=== PATIENT | female | born 1940 | race Caucasian/White ===

== ENCOUNTER 2016-10-09 09:59 | Day surgery (SDC) | payer MEDICARE, OTHER ==
--- NOTE | 2016-10-07 14:31 | HP ---
HISTORY OF PRESENT ILLNESS: The patient is a 75 year-old, history of hemoccult positive on 2 or 3 samples. According to the patient no gross bloody stools or melena. No change in bowel movements. FAMILY HISTORY: Mother with colon cancer, with colon cancer. She had a colonoscopy with a polyp back in 2007, is in need for follow up colonoscopy. PAST MEDICAL HISTORY: Bladder repair, hysterectomy, breast biopsy in the past. Had ovary and tube surgery in the past. She has had hypertension. MEDICATIONS: She is on aspirin, diltiazem, magnesium oxide for some hypomagnesium, potassium chloride. FAMILY HISTORY: Uterine cancer. ALLERGIES: Morphine, tramadol. SOCIAL HISTORY: No smoking, no alcohol abuse. REVIEW OF SYSTEMS: 12 systems reviewed, pertinent for admission assessment, no chest pain or palpitations, Other systems negative or noncontributory as noted above, pertinent as per admission questionnaire. PHYSICAL EXAMINATION: GENERAL: No acute distress. HEENT: Sclerae nonicteric. NECK: No JVD. CHEST: Equal excursions, nonlabored breathing. CARDIOVASCULAR: Regular rhythm. ABDOMEN: Soft, no peritoneal signs. EXTREMITIES: No significant edema. NEURO: Alert, moving extremities symmetrically. No gross motor deficits noted. RECTAL: Deferred for time of endoscopy exam. IMPRESSION: Hemoccult positive, 2 or 3 samples, according to the patient. No gross bloody stools but she has had prior history of polyps and she has had a family history of colon cancer. She needs follow up colonoscopy. She was shown the risk sheet, explained the procedure in detail, not limited to bleeding, infection, small risk of bowel injury or perforation, possible open procedure. Small risk of missed or non diagnosis, or incomplete exam possibly requiring barium enema or other studies or procedures. General risk of anesthesia or sedation, risk of bowel prep, postoperative nausea or cramping but not limited to. She understands, agrees to plan of procedure. We will proceed with outpatient follow up colonoscopy.
[~2016-10-09 09:59] MED LIST: Lactated Ringers 1,000 ML IV ONE; Lactated Ringers 1,000 ML IV SCH
[2016-10-09] MEDS ORDERED: Ketamine HCl 50 MG/ML IV ONE (10:00)
[2016-10-09] MEDS ORDERED: DIPRIVAN 200 MG/20 ML IV ONE (10:00)
[2016-10-09 10:18] VITALS: O2SAT 96
--- NOTE | 2016-10-09 12:44 | OP ---
SURGERY DATE/TIME: 10/09/2016 1143 PREOPERATIVE DIAGNOSES: 1) Heme-occult positive stool. 2) Personal history of polyps. 3) Family history of colon cancer. POSTOPERATIVE DIAGNOSES: 1) Slightly limited prep right colon. 2) Diverticulosis. 3) Small internal and external hemorrhoids. 4) One small patchy area of inflammation versus prep irritation sigmoid colon. PROCEDURES: Colonoscopy to cecum with cold biopsy patchy area of inflammation versus prep irritation sigmoid colon. SURGEON: Dr. Amish Branham. ANESTHESIA: MAC. ESTIMATED BLOOD LOSS: Minimal. INDICATIONS: As noted above. Risks and benefits explained in detail but not limited to and consent obtained. DESCRIPTION OF PROCEDURE AND FINDINGS: The patient is taken to the endoscopy room. MAC anesthesia introduced. After official time out and no disagreement with planned procedure, digital rectal exam did not reveal any rectal masses. Video colonoscope inserted and passed up the tortuous sigmoid, descending, transverse colon, ascending colon. In the right colon there was some foamy, liquidy stool that did limit exam a little bit. With the aid of some Mylicon suction irrigating first, the scope was able to be passed to the cecum. Appendiceal orifice and ileocecal valve well visualized. Palpation right lower quadrant confirmed location. On withdrawal of the scope, there were no signs of any large polyps, masses or obstructing lesion. She did have some moderate diverticulosis in the left colon. There was one small patchy area of inflammation versus prep irritation in the sigmoid colon cold biopsied for further evaluation. Otherwise no signs of any large polyps, masses or obstructing lesions. Again, she did have small internal and external hemorrhoids. Although she had some irritated hemorrhoids, heme-occult positive versus some other upper GI source or other etiology is unclear. Either way there were no signs of any obvious significant source of bleeding at this time noted in the colon. Findings discussed with the family out in the waiting area. She was transferred to the recovery room in stable condition. We will see her back in the office next week.
[2016-10-09 13:44] VITALS: BP 147/69; PULSE 71
== END 2016-10-09 13:46 | disposition home or self-care (01) ==
LOC: SDC 09:59
PROVIDERS: ATTEND Surgery
PROC: 0DBN8ZX Excision of Sigmoid Colon, Via Natural or Artificial Opening Endoscopic, Diagnostic (ICD-10-PCS; principal; 2016-10-09)
DX: K57.90 Diverticulosis of intestine, part unspecified, without perforation or abscess without bleeding (principal); Z86.010 Personal history of colon polyps; K64.4 Residual hemorrhoidal skin tags; K64.8 Other hemorrhoids; K51.40 Inflammatory polyps of colon without complications; Z80.0 Family history of malignant neoplasm of digestive organs; Z79.899 Other long term (current) drug therapy
CPT/HCPCS: 00810; 36415; 99100; J2704

== ENCOUNTER 2017-04-08 09:30 | Emergency (ER) | payer MEDICARE, OTHER ==
[2017-04-08 09:43] VITALS: O2SAT 98
--- NOTE | 2017-04-08 10:11 | ERPHSYRPT ---
- History of Present Illness Time Seen by Provider: 04/08/17 09:54 Source: patient Exam Limitations: no limitations Patient Subjective Stated Complaint: patient states she slipped on ice this morning and injured her right wrist. Triage Nursing Assessment: pt pink, warm, dry. swelling noted to right wrist. radial pulse strong. Physician History: 76-year-old white female arrives with complaint of pain in deformity of her right wrist symptoms since just prior to arrival. Patient states she fell at 8:00 this morning on the ice she has no other complaints. She does have a deformity and swelling of her right wrist. Past medical history includes high blood pressure, diverticulosis, polyps. Also history of arthritis Past surgical history includes bladder repair hysterectomy breast biopsy and ovary and tube removed. Occurred: just prior to arrival Method of Injury: fell (slipped on the ice) Quality: constant Severity of Pain-Max: moderate Severity of Pain-Current: moderate Extremities Pain Location: wrist: right Modifying Factors: Improves With: nothing Associated Symptoms: other (right wrist pain and deformity), No back pain, No chills, No chest discomfort, No chest pain, No dyspnea, No fever, No jaw pain, No nausea, No neck pain, No sweating, No short of breath, No vomiting Allergies/Adverse Reactions: morphine Adverse Reaction (Severe, Verified 04/08/17 09:43) Nausea and Vomiting tramadol Adverse Reaction (Severe, Verified 04/08/17 09:43) Nausea and Vomiting Home Medications: Diltiazem HCl [Cartia Xt] 180 mg PO DAILY 09/26/16 [History] Magnesium Oxide 400 mg [Mag-Ox 400] 400 mg PO DAILY 09/26/16 [History] Potassium Chloride 10 Meq Tab* [Klor Con 10 MEQ] 10 meq PO DAILY 09/26/16 [ History] Aspirin 81 mg PO DAILY 04/08/17 [History] Hx Tetanus, Diphtheria Vaccination/Date Given: Yes (up to date) Hx Influenza Vaccination/Date Given: Yes Hx Pneumococcal Vaccination/Date Given: Yes Immunizations Up to Date: Yes - Review of Systems Constitutional: No Fever, No Chills Eyes: No Symptoms Ears, Nose, & Throat: No Symptoms Respiratory: No Cough, No Dyspnea Cardiac: No Chest Pain, No Edema, No Syncope Abdominal/Gastrointestinal: No Abdominal Pain, No Nausea, No Vomiting, No Diarrhea Genitourinary Symptoms: No Dysuria Musculoskeletal: Other (right wrist pain and deformity) Skin: No Rash Neurological: No Dizziness, No Focal Weakness, No Sensory Changes Psychological: No Symptoms Endocrine: No Symptoms All Other Systems: Reviewed and Negative - Past Medical History Pertinent Past Medical History: Yes Neurological History: No Pertinent History ENT History: No Pertinent History Cardiac History: Hypertension Respiratory History: No Pertinent History Endocrine Medical History: No Pertinent History Musculoskeletal History: Arthritis GI Medical History: No Pertinent History History: No Pertinent History Psycho-Social History: No Pertinent History Female Reproductive Disorders: No Pertinent History - Past Surgical History Past Surgical History: Yes Neuro Surgical History: No Pertinent History Cardiac: No Pertinent History Respiratory: No Pertinent History Gastrointestinal: No Pertinent History Genitourinary: No Pertinent History Musculoskeletal: No Pertinent History Female Surgical History: Hysterectomy - Social History Smoking Status: Never smoker Exposure to second hand smoke: Yes Drug Use: none Patient Lives Alone: No - Female History Hx Now: No - Nursing Vital Signs Nursing Vital Signs: Initial Vital Signs Temperature 97.7 F 04/08/17 09:38 Pulse Rate 69 04/08/17 09:38 Respiratory Rate 18 04/08/17 09:38 Blood Pressure 176/69 04/08/17 09:38 O2 Sat by Pulse Oximetry 98 04/08/17 09:38 Pain Scale Pain Intensity 7 - Physical Exam General Appearance: mild distress Eyes, Ears, Nose, Throat Exam: moist mucous membranes Neck Exam: non-tender, supple Cardiovascular/Respiratory Exam: chest non-tender, normal breath sounds, regular rate/rhythm, no respiratory distress Abdominal Exam: non-tender, No guarding Back Exam: normal inspection, No vertebral tenderness Shoulder Exam: normal inspection, non-tender, no evidence of injury, normal ROM Elbow/Forearm Exam: normal inspection, non-tender, no evidence of injury, normal ROM Wrist Exam: No normal inspection (right wrist deformity, pain with palpation, decreased range of motion right wrist secondary to pain, right radial, ulnar pulses intact 2 /4 good capillary refill all fingers sensation intact to all fingers.) Hand Exam: normal inspection, non-tender, no evidence of injury, normal ROM Neuro/Tendon Exam: normal sensation, normal motor functions Mental Status Exam: alert, oriented x 3, cooperative Skin Exam: normal color, warm, dry SpO2 Interpretation: normal (98%) SpO2: 98 Oxygen Delivery: Room Air - Course Nursing assessment & vital signs reviewed: Yes - Radiology Exams Right Wrist X-ray Interpretation: Interpreted by me (X-ray right wrist, impacted comminuted fracture right distal radius with dorsal angulation.) Ordered Tests: Active Orders 24 hr Category Date Time Status Cold Application STAT Care 04/08/17 09:46 Active IV Insertion STAT Care 04/08/17 10:26 Active Splint STAT Care 04/08/17 10:20 Active WRIST (MIN 3 VIEWS) Stat Exams 04/08/17 09:56 Taken Medication Summary Discontinued Medications Generic Name Dose Route Start Last Admin Trade Name Freq PRN Reason Stop Dose Admin Ketorolac Tromethamine 30 mg 04/08/17 10:20 Toradol 30 Mg Injection IM 04/08/17 10:21 STAT ONE - Progress Progress: improved Progress Note: 04/08/17 10:13 This is a 76-year-old white female who arrives with complaint of pain and deformity of her right wrist after falling on the ice at approximately 8 AM this morning. Patient has an impacted comminuted fracture of her right distal radius with dorsal angulation. Family are interested in going to [facility] if they need to proceed for orthopedic care. I've discussed the case with Dr. Miller at [facility]. She has excepted patient for transfer. Patient does state that she has allergy to morphine and tramadol this apparently makes her nauseous. Will either give patient Toradol IM or consider IV fentanyl with Zofran. 04/08/17 10:22 Patient's son wants to take patient to [facility]. Patient stable. OCL splint applied patient's right arm by the patient's nurse. 04/08/17 10:27 Consideration was given to Toradol IM however Will go ahead and place IV, give patient fentanyl 25 g IV and give patient Zofran 4 mg IV. Instead. - Departure Time of Disposition: 10:15 Departure Disposition: Transfer ([facility] Dr. Miller) Clinical Impression: Fracture of right distal radius Qualifiers: Encounter type: initial encounter Fracture type: closed Fracture morphology: unspecified fracture morphology Qualified Code(s): S52.501A - Unspecified fracture of the lower end of right radius, initial encounter for closed fracture Condition: Fair Critical Care Time: No Referrals: ALYCE GONZALEZ [Primary Care Provider] - Additional Instructions: Proceed to [facility] ER. Nothing by mouth.
[2017-04-08] MEDS ORDERED: TORAdol 30 mg Injection IM ONE (10:20)
[2017-04-08] MEDS ORDERED: Zofran 4 MG/2 ML VIAL IV ONE (10:26)
[2017-04-08] MEDS ORDERED: SUBLIMAZE 100 MCG/2 ML IV ONE (10:26)
[2017-04-08] MEDS ORDERED: Zofran 4 MG/2 ML VIAL ONE (10:34)
[2017-04-08] MEDS ORDERED: SUBLIMAZE 100 MCG/2 ML ONE (10:35)
[2017-04-08 10:45] VITALS: PULSE 67
[2017-04-08 10:53] VITALS: BP 152/75
--- NOTE | 2017-04-08 20:47 | XRAY ---
Indication: Pain following fall. Comparison: None 3 views of the right wrist demonstrates osteopenia, hand/wrist degenerative changes, and mild posterior angulated and impacted acute fracture involving the distal metadiaphysis of the radius with soft tissue swelling.
== END 2017-04-08 10:53 | disposition short-term general hospital (02) ==
LOC: ED 09:30
PROC: 2W38X1Z Immobilization of Right Upper Extremity using Splint (ICD-10-PCS; principal; 2017-04-08)
DX: S52.501A Unspecified fracture of the lower end of right radius, initial encounter for closed fracture (principal); W00.0XXA Fall on same level due to ice and snow, initial encounter; Y93.9 Activity, unspecified; Y92.9 Unspecified place or not applicable; I10 Essential (primary) hypertension; M19.90 Unspecified osteoarthritis, unspecified site; Z79.899 Other long term (current) drug therapy
CPT/HCPCS: 29105; 36000; 73110; 96374; 96375; 99285; J2405; J3010

== ENCOUNTER 2017-04-30 12:47 | Inpatient (IN) | payer MEDICARE, OTHER ==
--- NOTE | 2017-04-30 13:11 | ERPHSYRPT ---
- History of Present Illness Time Seen by Provider: 04/30/17 13:00 Source: patient, family (sister) Patient Subjective Stated Complaint: Pt states "I had pain in my back on the right side and today it is up on my right side. I do no know if I am pulling muscles due to the new cast or not." Triage Nursing Assessment: Pt alert and oriented X 3, skin pwd. Pt ambulates with an upright steady gait, able to speak in clear full sentences. no apparent respiratory distress. Physician History: CC: right side pain Hx: 76 y/o patient of Dr Gonzalez with cast on her right arm from a fall three weeks ago. It is healing well. She has noted right side pain radiating from her back to the front since yesterday. Took a pain pill this AM and had nausea which has now resolved. No fever, chills, cough, or known rib injury. Pain radiates to her RUQ. Normal urination. Timing/Duration: yesterday Severity: moderate Allergies/Adverse Reactions: morphine Adverse Reaction (Severe, Verified 04/08/17 09:43) Nausea and Vomiting tramadol Adverse Reaction (Severe, Verified 04/08/17 09:43) Nausea and Vomiting Sulfa (Sulfonamide Antibiotics) Adverse Reaction (Verified 04/30/17 13:06) sick Home Medications: Diltiazem HCl [Cartia Xt] 180 mg PO DAILY 09/26/16 [History] Magnesium Oxide 400 mg [Mag-Ox 400] 400 mg PO DAILY 09/26/16 [History] Potassium Chloride 10 Meq Tab* [Klor Con 10 MEQ] 10 meq PO DAILY 09/26/16 [ History] Aspirin 81 mg PO DAILY 04/08/17 [History] Hx Tetanus, Diphtheria Vaccination/Date Given: Yes Hx Influenza Vaccination/Date Given: Yes Hx Pneumococcal Vaccination/Date Given: No Immunizations Up to Date: Yes - Review of Systems Constitutional: No Fever, No Chills Eyes: No Symptoms Ears, Nose, & Throat: No Symptoms Respiratory: No Cough, No Dyspnea Cardiac: Chest Pain (right side) Abdominal/Gastrointestinal: Abdominal Pain (right side), Nausea (this AM) Genitourinary Symptoms: No Dysuria Skin: No Rash Neurological: No Headache All Other Systems: Reviewed and Negative - Past Medical History Pertinent Past Medical History: Yes Neurological History: No Pertinent History ENT History: No Pertinent History Cardiac History: Hypertension Respiratory History: No Pertinent History Endocrine Medical History: No Pertinent History Musculoskeletal History: Arthritis GI Medical History: No Pertinent History History: No Pertinent History Psycho-Social History: No Pertinent History Female Reproductive Disorders: No Pertinent History - Past Surgical History Past Surgical History: Yes Neuro Surgical History: No Pertinent History Cardiac: No Pertinent History Respiratory: No Pertinent History Gastrointestinal: No Pertinent History Genitourinary: No Pertinent History Musculoskeletal: No Pertinent History Female Surgical History: Hysterectomy Other Surgical History: rt hand - Social History Smoking Status: Never smoker Exposure to second hand smoke: No Drug Use: none Patient Lives Alone: No - Female History Hx Last Menstrual Period: hysterecomty - Nursing Vital Signs Nursing Vital Signs: Initial Vital Signs Temperature 97.7 F 04/30/17 13:01 Pulse Rate 90 04/30/17 13:01 Respiratory Rate 20 04/30/17 13:01 Blood Pressure 144/100 04/30/17 13:01 O2 Sat by Pulse Oximetry 98 04/30/17 13:01 Pain Scale Pain Intensity 0 - Physical Exam General Appearance: alert Eye Exam: PERRL/EOMI Ears, Nose, Throat Exam: normal ENT inspection, moist mucous membranes Neck Exam: normal inspection, non-tender, supple Respiratory Exam: normal breath sounds Cardiovascular Exam: regular rate/rhythm Gastrointestinal/Abdomen Exam: soft, No tenderness, No distention, No mass, No guarding Back Exam: normal inspection, normal range of motion, No CVA tenderness Extremity Exam: normal inspection (right arm cast, hand pink and well perfused) Neurologic Exam: alert, oriented x 3, cooperative, sensation nml, No motor deficits Skin Exam: warm, dry, No rash SpO2 Interpretation: normal SpO2: 98 Oxygen Delivery: Room Air - Course Nursing assessment & vital signs reviewed: Yes EKG Interpreted by Me: RATE (126), A-fib, NORMAL AXIS, LAFB, NORMAL INTERVALS ( QTc 461), Non-specific ST Changes - Radiology Exams cxr X-ray Interpretation: Teleradiologist Report (stable copd, rll I/A) - Radiology Ultrasound Exam GB Ultrasound: discussed w/radiologist (negative, no right kidney hydronephrosis) Ordered Tests: Active Orders 24 hr Category Date Time Status Cath for Specimen-Straight STAT Care 04/30/17 13:06 Active EKG-ER Only STAT Care 04/30/17 13:06 Active IV Insertion STAT Care 04/30/17 13:06 Active CHEST 2 VIEWS (PA AND LAT) Stat Exams 04/30/17 13:06 Completed CHEST WITH CONTRAST [CT] Stat Exams 04/30/17 14:50 Completed GALLBLADDER [US] Stat Exams 04/30/17 13:06 Completed CBC W DIFF Stat Lab 04/30/17 13:30 Completed CMP Stat Lab 04/30/17 13:30 Completed D-DIMER QUANTITATION Stat Lab 04/30/17 14:21 Completed LIPASE Stat Lab 04/30/17 13:30 Completed MAGNESIUM Stat Lab 04/30/17 14:22 Completed PROTIME WITH INR Stat Lab 04/30/17 14:21 Completed PTT Stat Lab 04/30/17 14:21 Completed TROPONIN Q3H Lab 04/30/17 13:30 Completed TROPONIN Q3H Lab 04/30/17 17:30 Ordered TROPONIN Q3H Lab 04/30/17 20:30 Ordered TROPONIN Q3H Lab 04/30/17 23:30 Ordered TROPONIN Q3H Lab 05/01/17 02:30 Ordered UA W/RFX UR CULTURE Stat Lab 04/30/17 13:10 Completed Medication Summary Generic Name Dose Route Start Last Admin Trade Name Freq PRN Reason Stop Dose Admin Diltiazem HCl 100 mls @ 5 mls/hr 04/30/17 14:22 04/30/17 14:40 Cardizem Drip 100 Mg/100 Ml D5w IV 05/30/17 14:21 5 mg/hr .Q20H PRN 5 mls/hr HEART RATE/ A-FIB Administration Protocol 5 MG/HR Discontinued Medications Generic Name Dose Route Start Last Admin Trade Name Freq PRN Reason Stop Dose Admin Diltiazem HCl 5 mg 04/30/17 14:22 04/30/17 14:41 Cardizem Iv 50 Mg/10 Ml IV 04/30/17 14:23 5 mg STAT ONE Administration Diltiazem HCl Confirm 04/30/17 14:25 Cardizem Iv 50 Mg/10 Ml Administered 04/30/17 14:26 Dose 50 mg IV .STK-MED ONE Ondansetron HCl 4 mg 04/30/17 13:12 04/30/17 13:50 Zofran 4 Mg/2 Ml Vial IV 04/30/17 13:13 4 mg STAT ONE Administration Ondansetron HCl Confirm 04/30/17 13:17 Zofran 4 Mg/2 Ml Vial Administered 04/30/17 13:18 Dose 4 mg .ROUTE .STK-MED ONE Lab/Rad Data: Laboratory Result Diagrams 04/30/17 13:30 04/30/17 13:30 Laboratory Results 04/30/17 04/30/17 04/30/17 Range/Units 14:22 14:21 13:30 WBC (4.0-10.5) K/mm3 RBC (4.1-5.4) M/mm3 Hgb (12.0-16.0) gm/dl Hct (35-47) % MCV (78-100) fl MCH (26-32) pg MCHC (32-36) g/dl RDW (11.5-14.0) % Plt Count (150-450) K/mm3 MPV (6-9.5) fl Gran % (36.0-66.0) % Lymphocytes % (24.0-44.0) % Monocytes % (0.0-12.0) % Eosinophils % (0.00-5.0) % Basophils % (0.0-0.4) % Basophils # (0-0.4) INR 1.17 (0.8-3.0) APTT 25.3 (25.3-37.0) SECONDS D-Dimer 2016.48 H* (0-500) ng/mL Sodium (137-145) mmol/L Potassium (3.5-5.1) mmol/L Chloride (98-107) mEq/L Carbon Dioxide (22-30) mmol/L Anion Gap MEQ/L BUN (7-17) mg/dL Creatinine (0.52-1.04) mg/dl Estimated GFR ML/MIN Glucose (74-106) mg/dL Calcium (8.4-10.2) mg/dL Magnesium 2.1 (1.6-2.3) mg/dL Total Bilirubin (0.2-1.3) mg/dL AST (14-36) U/L ALT (0-35) U/L Alkaline Phosphatase (38-126) U/L Troponin I < 0.012 (0.000-0.034) ng/mL Serum Total Protein (6.3-8.2) mg/dL Albumin (3.5-5.0) g/dL Lipase (23-300) U/L Ur Collection Type Urine Color (YELLOW) Urine Appearance (CLEAR) Urine pH (5-6) Ur Specific Walker (1.005-1.025) Urine Protein (Negative) Urine Ketones (NEGATIVE) Urine Blood (0-5) Francis/ul Urine Nitrite (NEGATIVE) Urine Bilirubin (NEGATIVE) Urine Urobilinogen (0-1) mg/dL Ur Leukocyte Esterase (NEGATIVE) Urine Culture Reflexed (NO) Urine Glucose (NEGATIVE) mg/dL Specimen Received 04/30/17 04/30/17 04/30/17 Range/Units 13:30 13:30 13:10 WBC 10.9 H (4.0-10.5) K/mm3 RBC 3.97 L (4.1-5.4) M/mm3 Hgb 13.0 (12.0-16.0) gm/dl Hct 38.8 (35-47) % MCV 97.7 (78-100) fl MCH 32.7 H (26-32) pg MCHC 33.5 (32-36) g/dl RDW 13.6 (11.5-14.0) % Plt Count 327 (150-450) K/mm3 MPV 9.9 H (6-9.5) fl Gran % 80.6 H (36.0-66.0) % Lymphocytes % 9.7 L (24.0-44.0) % Monocytes % 9.4 (0.0-12.0) % Eosinophils % 0.2 (0.00-5.0) % Basophils % 0.1 (0.0-0.4) % Basophils # 0.01 (0-0.4) INR (0.8-3.0) APTT (25.3-37.0) SECONDS D-Dimer (0-500) ng/mL Sodium 137 (137-145) mmol/L Potassium 4.0 (3.5-5.1) mmol/L Chloride 105 (98-107) mEq/L Carbon Dioxide 22 (22-30) mmol/L Anion Gap 13.7 MEQ/L BUN 12 (7-17) mg/dL Creatinine 0.70 (0.52-1.04) mg/dl Estimated GFR > 60 ML/MIN Glucose 142 H (74-106) mg/dL Calcium 9.2 (8.4-10.2) mg/dL Magnesium (1.6-2.3) mg/dL Total Bilirubin 0.90 (0.2-1.3) mg/dL AST 17 (14-36) U/L ALT 16 (0-35) U/L Alkaline Phosphatase 89 (38-126) U/L Troponin I (0.000-0.034) ng/mL Serum Total Protein 6.8 (6.3-8.2) mg/dL Albumin 3.8 (3.5-5.0) g/dL Lipase 72 (23-300) U/L Ur Collection Type CLEAN CATCH Urine Color YELLOW (YELLOW) Urine Appearance CLEAR (CLEAR) Urine pH 5.0 (5-6) Ur Specific Walker 1.025 (1.005-1.025) Urine Protein NEGATIVE (Negative) Urine Ketones NEGATIVE (NEGATIVE) Urine Blood NEGATIVE (0-5) Francis/ul Urine Nitrite NEGATIVE (NEGATIVE) Urine Bilirubin NEGATIVE (NEGATIVE) Urine Urobilinogen NORMAL (0-1) mg/dL Ur Leukocyte Esterase NEGATIVE (NEGATIVE) Urine Culture Reflexed NO (NO) Urine Glucose NEGATIVE (NEGATIVE) mg/dL Specimen Received 04/30/17 1340 - Progress Progress Note: 04/30/17 14:23 No hx of afib in the past. She did not take her cardizem this AM as she was going to the doctor. No anticoagulants. Will check d-dimer, start cardizem for afib RVR. 04/30/17 16:28 CTA shows bilateral nonoccluding pulmonary emboli. Pt and family aware. She is on cardizem gtt for afib. Called Dr Gonzalez and will admit to ICU, echo, lovenox, and cardizem gtt. Counseled pt/family regarding: diagnosis, need for follow-up - Departure Time of Disposition: 16:30 Departure Disposition: In-patient Admission (ICU) Clinical Impression: Pulmonary emboli, Atrial fibrillation with RVR Condition: Serious Critical Care Time: Yes Critical Care Time(excluding separately billable procedures): 30-74 minutes Referrals: ALYCE GONZALEZ [Primary Care Provider] -
[2017-04-30] MEDS ORDERED: Zofran 4 MG/2 ML VIAL IV ONE (13:12)
[2017-04-30] MEDS ORDERED: Zofran 4 MG/2 ML VIAL ONE (13:17)
[2017-04-30 13:44] LABS: Appearance CLEAR (CLEAR); Bilirubin NEGATIVE (NEGATIVE); Blood NEGATIVE Ery/ul (0-5); Glucose NEGATIVE (NEGATIVE); Ketones NEGATIVE (NEGATIVE); Leukocyte Esterase NEGATIVE (NEGATIVE); Nitrite NEGATIVE (NEGATIVE); Protein,Urine Dip NEGATIVE (Negative); Specific Gravity 1.025 (1.005-1.025); Urobilinogen NORMAL mg/dL (0-1)
--- NOTE | 2017-04-30 14:02 | XRAY ---
Indication: Right upper quadrant pain. Vomiting. Comparison: June 27, 2012. PA/lateral chest again hyperinflated with new subtle right lower lobe infiltrate versus atelectasis. Left lung clear. Heart is not enlarged. Bony thorax intact with stable mild osteopenia, degenerative changes, and dextroscoliosis. Impression: 1. Right lower lobe infiltrate/atelectasis. Correlate clinically. 2. Stable COPD.
--- NOTE | 2017-04-30 14:05 | XRAY ---
Indication: Right upper quadrant pain. Two-dimensional right upper quadrant abdominal sonogram performed. Comparison: None Visualized portions of the gallbladder, liver, pancreas, and right kidney appear sonographically normal. Common bile duct measures 5.2 mm. Right kidney measures 9.6 cm in length. No ascites. Impression: Negative gallbladder sonogram.
[2017-04-30] MEDS ORDERED: CARDIZEM DRIP 100 MG/100 ML D5W 100 ML IV PRN (14:22)
[2017-04-30] MEDS ORDERED: Cardizem IV 50 MG/10 ML IV ONE ×2 (14:22→14:25)
[2017-04-30 14:26] LABS: ALBUMIN 3.8 g/dL (3.5-5.0); ALKALINE PHOSPHATASE 89 U/L (38-126); BLOOD UREA NITROGEN 12 mg/dL (7-17); CHLORIDE 105 mEq/L (98-107); Calcium 9.2 mg/dL (8.4-10.2); Carbon Dioxide 22 mmol/L (22-30); Glucose 142 mg/dL (74-106); LIPASE 72 U/L (23-300); SGOT/AST 17 U/L (14-36); SGPT/ALT 16 U/L (0-35); SODIUM 137 mmol/L (137-145); Total Protein 6.8 mg/dL (6.3-8.2)
[2017-04-30] MEDS ORDERED: CARDIZEM DRIP 100 MG/100 ML D5W 100 ML IV ONE (14:26)
[2017-04-30 14:30] LABS: INR 1.17 (0.8-3.0)
[2017-04-30 14:33] LABS: PTT 25.3 SECONDS (25.3-37.0)
[2017-04-30 14:47] LABS: ANION GAP 13.7 MEQ/L
[2017-04-30 14:54] LABS: BASOPHIL % 0.1 % (0.0-0.4); Basophil (Absolute #) 0.01 (0-0.4); Eosinophil % 0.2 % (0.00-5.0); Eosinophil (Absolute #) 0.02 (0-0.5); Granulocyte Absolute (ANC) 8.81 (1.4-6.9); Granulocytes % 80.6 % (36.0-66.0); Hematocrit 38.8 % (35-47); Lymphocyte (Absolute #) 1.06 (1.0-4.6); Lymphocytes % 9.7 % (24.0-44.0); Mean Cell Volume 97.7 fl (78-100); Mean Corpuscular Hemoglobin 32.7 pg (26-32); Mean Corpuscular Hgb Concent. 33.5 g/dl (32-36); Mean Platelet Volume 9.9 fl (6-9.5); Monocyte (Absolute #) 1.03 (0.0-1.3); Monocytes % 9.4 % (0.0-12.0); Platelet Count 327 K/mm3 (150-450); Red Blood Count 3.97 M/mm3 (4.1-5.4); Red Cell Distribution Width 13.6 % (11.5-14.0); White Blood Count 10.9 K/mm3 (4.0-10.5)
--- NOTE | 2017-04-30 16:15 | XRAY ---
Indication: Right-sided chest pain, short of breath, and wheezing. Elevated d-dimer. Multiple contiguous axial images obtained through the chest using 80 cc Isovue 370 contrast and PE protocol. Comparison: None There is satisfactory opacification of the pulmonary arteries including lobar and segmental branches. Non-occluding pulmonary emboli seen in the main right lower lobe and segmental branches. Additional lesser degree nonoccluding pulmonary emboli in all lobar branches bilaterally. Heart is not enlarged. Aorta is normal in course and caliber. No pathologic mediastinal/hilar lymphadenopathy. Small hiatal hernia. Subcentimeter right thyroid cyst/nodule. Examination of the lung parenchyma demonstrates mild bilateral dependent atelectasis and bibasilar fibrosis/scarring. Patchy right lower lobe airspace opacities with small effusion. Bony thorax intact with minimal degenerative changes throughout the spine. Limited upper abdomen demonstrates fatty liver. Impression: 1. Diffuse bilateral nonoccluding pulmonary emboli in all lobar branches, greatest right lower lobe. No distal infarct. 2. Right lower lobe patchy airspace disease with small effusion. 3. Small hiatal hernia. 4. Subcentimeter right thyroid cyst/nodule and fatty liver. CTDI 26.19
[2017-04-30] MEDS ORDERED: ENOXAPARIN SODIUM SQ SCH (16:30)
[2017-04-30] MEDS ORDERED: ENOXAPARIN SODIUM SQ ONE (16:46)
[2017-04-30] MEDS ORDERED: TYLENOL 325 MG PO PRN (17:24)
[2017-04-30] MEDS ORDERED: Lopressor 50 MG PO SCH (18:00)
[2017-04-30] MEDS ORDERED: ECOTRIN 81 MG PO SCH (18:30)
[2017-04-30] MEDS: Klor Con 10 MEQ PO SCH (18:52)
[2017-04-30] MEDS: MAG-OX 400 PO SCH (18:52)
[2017-04-30] MEDS: Coumadin 5 MG PO SCH (18:53)
[2017-04-30] MEDS: Pepcid 20 MG VIAL IV SCH (21:53)
[2017-05-01 04:52] LABS: BASOPHIL % 0.2 % (0.0-0.4); Basophil (Absolute #) 0.02 (0-0.4); Eosinophil % 0.8 % (0.00-5.0); Eosinophil (Absolute #) 0.08 (0-0.5); Granulocyte Absolute (ANC) 6.99 (1.4-6.9); Granulocytes % 71.4 % (36.0-66.0); Hematocrit 36.5 % (35-47); Lymphocyte (Absolute #) 1.66 (1.0-4.6); Mean Cell Volume 97.9 fl (78-100); Mean Corpuscular Hgb Concent. 32.9 g/dl (32-36); Mean Platelet Volume 9.5 fl (6-9.5); Monocyte (Absolute #) 1.04 (0.0-1.3); Monocytes % 10.6 % (0.0-12.0); Platelet Count 303 K/mm3 (150-450); Red Blood Count 3.73 M/mm3 (4.1-5.4); Red Cell Distribution Width 13.6 % (11.5-14.0); White Blood Count 9.8 K/mm3 (4.0-10.5)
[2017-05-01 04:55] LABS: Mean Corpuscular Hemoglobin 32.1 pg (26-32)
[2017-05-01 05:10] LABS: ANION GAP 12.8 MEQ/L; BLOOD UREA NITROGEN 8 mg/dl (7-17); CHLORIDE 102 mEq/L (98-107); Calcium 8.7 mg/dl (8.4-10.2); Carbon Dioxide 26 mmol/L (22-30); Creatinine 1 0.65 mg/dl (0.52-1.04); Glucose 100 mg/dL (74-106); Potassium 4.3 mmol/L (3.5-5.1); SODIUM 136 mmol/L (137-145)
[2017-05-01 05:35] LABS: INR 1.2 (0.8-3.0)
[2017-05-01 05:40] LABS: TSH, 3RD Generation 0.822 mIU/L (0.47-4.68)
[2017-05-01] MEDS ORDERED: Lopressor 50 MG ONE (05:55)
--- NOTE | 2017-05-01 07:51 | HP ---
HISTORY OF PRESENT ILLNESS: This is a 76 year-old lady who presented to the emergency department today. She reports that yesterday she started having right upper quadrant and back pain. She saw her orthopedic surgeon today and had a new cast placed on her right arm for a fracture. She felt this morning like she had been short of breath and was wheezing. We received a call from her home health nurse describing her symptoms and asked her to go to the emergency department. In the emergency department she was eventually discovered to have multiple small pulmonary emboli throughout both lungs as well as atrial fibrillation with rapid ventricular response. She reports that she just feels tired and wiped out. She reports that a week ago Sunday her left calf felt sore. She reports she has been as mobile as she is right handed and has not been able to do much with her arm in a cast. She also felt like it took a lot of effort to do anything with the cast and sometimes she would just feel very warm. She has a cast on her arm because she slipped on ice fell and broke her arm. REVIEW OF SYSTEMS: She denies any cough. No fever. Otherwise review of systems as noted in the history of present illness. PAST MEDICAL HISTORY: Hypertension, osteopenia. PAST SURGICAL HISTORY: Appendectomy, colonoscopy in 2007 with one polyp, bilateral ovaries removed 1990, breast biopsy that was benign in 1987, hysterectomy 1985 for noncancerous reason, bladder repair. MEDICATIONS: Aspirin 81 mg p.o. daily, diltiazem 180 mg p.o. daily which she reports she did not take this morning, potassium chloride 10 mEq p.o. daily, magnesium oxide 400 mg daily. ALLERGIES: MORPHINE, TRAMADOL, SULFA. SOCIAL HISTORY: She denies any tobacco or alcohol use. Her son, Julio C, lives with her. FAMILY HISTORY: Her father was killed in a war. Her mother had uterine cancer and colon cancer. PHYSICAL EXAMINATION: VITAL SIGNS: Temperature current 98.4F, temperature max 97.7F, heart rate 90 to 136, respiratory rate 18 to 22, blood pressure 114 to 144 over 70 to 102, weight 88.8 kg. Oxygen saturation 95 to 98% on room air. GENERAL: The patient is lying in bed a pleasant talkative lady in no acute distress. There is a family member at the bedside. CVS: Heart rate is irregularly irregular and tachycardic. CHEST: Lungs are clear to auscultation bilaterally. No crackles or wheezes. ABDOMEN: Soft, nontender, nondistended with normal bowel sounds. EXTREMITIES: No clubbing, cyanosis or edema. SKIN: Warm, dry and intact. LABORATORY DATA AND TESTS: Her D-dimer was significantly elevated at 2,016. White blood cell count 10.9, glucose 142. She has had two negative troponins. UA was negative. CT scan of her chest was read as diffuse bilateral nonoccluding pulmonary emboli in all lobar branches greater right lower lobe. No distal infarct. Right lower lobe patchy airspace disease with small effusion. Small hiatal hernia. Subcentimeter right bilobe cyst/nodule and fatty liver. Please see the radiologist report for full dictation. Gallbladder ultrasound in the emergency room was read as negative. Chest x-ray was read as right lower lobe infiltrate/atelectasis and stable chronic obstructive pulmonary disease. Clinically the patient has never had chronic obstructive pulmonary disease. ASSESSMENT AND PLAN: 1) ATRIAL FIBRILLATION WITH RAPID VENTRICULAR RESPONSE: She was given diltiazem loading dose in the emergency room followed by a drip. She was continued on this when admitted to the ICU. The pharmacist then reports there is not much diltiazem left. I discussed her case with Dr. Vladerrama who is the patient's chosen ultrasonic tester although she has never been seen by the ultrasonic tester yet. He recommends starting her on metoprolol tartrate 50 mg p.o. b.i.d. and titrating the diltiazem drip off. We will consider using digoxin if we need to for continued heart rate. She has also been started on Lovenox and Coumadin for anticoagulation. Echocardiogram has been ordered. Dr. Valderrama agrees to see her by tele-medicine tomorrow. 2) BILATERAL PULMONARY EMBOLI: Again she has been started on Lovenox and Coumadin. She will need to see her pick pulling machine operator as an outpatient and will set up an evaluation. She does have risk factors for pulmonary emboli such as immobility and recent surgery. She has ultrasound Doppler's of the legs ordered for the morning. 3) HYPERTENSION: Her blood pressure is currently well controlled on the diltiazem drip and metoprolol tartrate started. Will discontinue her home Cardizem. 4) RIGHT ARM FRACTURE: She just had her cast replaced by Dr. Albert Bob today, continue with management of this per him.
--- NOTE | 2017-05-01 08:26 | PCM.NOTE ---
Date and Time: 05/01/17820 Subjective Assessment: Patient reports she did not get much sleep last night. She continues to have right sided chest pain. She is fatigued. Her family member by her bedside reports she has not been as mobile since she had her wrist fracture. - Review of Systems Constitutional: Fatigue Eyes: No Symptoms Ears, Nose, & Throat: No Symptoms Respiratory: No Symptoms Cardiac: Chest Pain Abdominal/Gastrointestinal: No Symptoms Genitourinary Symptoms: No Symptoms Musculoskeletal: Other (right arm in cast) Objective Exam General Appearance: no apparent distress, alert, other (Patient has very hard time sitting up in bed.) Neurologic Exam: alert, cooperative, normal mood/affect Skin Exam: normal color, warm, dry Respiratory Exam: normal breath sounds, lungs clear, No crackles/rales, No rhonchi, No wheezing Cardiovascular Exam: normal heart sounds, irregular, other (irregularly irregular, normal rate), No murmur, No friction rub, No gallop Gastrointestinal/Abdomen Exam: soft, normal bowel sounds, No tenderness, No distention, No mass Extremity Exam: other (no c/c/e, varicose veins) OBJECTIVE DATA Vital Signs: Vital Signs - 24 hr Temp Pulse Resp BP BP Pulse Ox 05/01/17 08:00 98.7 F 93 H 24 105/75 93 L 05/01/17 07:00 84 21 94/60 94 L 05/01/17 06:00 113 H 22 136/76 92 L 05/01/17 05:00 99 H 20 126/70 91 L 05/01/17 04:00 98.4 F 103 H 23 113/75 92 L 05/01/17 03:00 93 H 26 H 91/60 92 L 05/01/17 02:00 91 H 19 115/71 92 L 05/01/17 01:00 89 28 H 115/63 93 L 05/01/17 00:01 97 H 05/01/17 00:00 98 H 36 H 109/67 93 L 04/30/17 23:49 98.6 F 04/30/17 23:00 99 H 27 H 103/69 94 L 04/30/17 22:00 82 23 106/60 92 L 04/30/17 21:00 87 31 H 95/64 92 L 04/30/17 20:00 99.3 F 102 H 20 124/66 94 L 04/30/17 19:00 104 H 22 128/78 95 04/30/17 18:00 98.4 F 120 H 22 134/72 95 04/30/17 17:24 95 04/30/17 16:34 130/90 04/30/17 16:30 98 04/30/17 16:03 121 H 22 138/70 04/30/17 14:50 132 H 18 131/102 04/30/17 14:40 132 H 127/90 04/30/17 13:50 134 H 18 114/87 92 L 04/30/17 13:01 97.7 F 90 20 144/100 98 Pain Assessment - Last Documented Pain Intensity 3 Pain Scale Used 0-10 Pain Scale Intake and Output: Intake & Output 04/29/17 04/30/17 05/01/17 05/02/17 06:59 06:59 06:59 06:59 Intake Total 643 Output Total 200 Balance 443 Weight 90.2 kg Lab Results: Lab Results-Last 24 Hours 04/30/17 04/30/17 05/01/17 Range/Units 17:59 23:51 04:47 WBC 9.8 (4.0-10.5) K/mm3 RBC 3.73 L (4.1-5.4) M/mm3 Hgb 12.0 (12.0-16.0) gm/dl Hct 36.5 (35-47) % MCV 97.9 (78-100) fl MCH 32.1 H (26-32) pg MCHC 32.9 (32-36) g/dl RDW 13.6 (11.5-14.0) % Plt Count 303 (150-450) K/mm3 MPV 9.5 (6-9.5) fl Gran % 71.4 H (36.0-66.0) % Lymphocytes % 17.0 L (24.0-44.0) % Monocytes % 10.6 (0.0-12.0) % Eosinophils % 0.8 (0.00-5.0) % Basophils % 0.2 (0.0-0.4) % Basophils # 0.02 (0-0.4) INR (0.8-3.0) Sodium (137-145) mmol/L Potassium (3.5-5.1) mmol/L Chloride (98-107) mEq/L Carbon Dioxide (22-30) mmol/L Anion Gap MEQ/L BUN (7-17) mg/dl Creatinine (0.52-1.04) mg/dl Estimated GFR ML/MIN Glucose (74-106) mg/dL Calcium (8.4-10.2) mg/dl Troponin I < 0.012 < 0.012 (0.000-0.034) ng/ml TSH 3rd Generation (0.47-4.68) mIU/L 05/01/17 05/01/17 Range/Units 04:47 04:47 WBC (4.0-10.5) K/mm3 RBC (4.1-5.4) M/mm3 Hgb (12.0-16.0) gm/dl Hct (35-47) % MCV (78-100) fl MCH (26-32) pg MCHC (32-36) g/dl RDW (11.5-14.0) % Plt Count (150-450) K/mm3 MPV (6-9.5) fl Gran % (36.0-66.0) % Lymphocytes % (24.0-44.0) % Monocytes % (0.0-12.0) % Eosinophils % (0.00-5.0) % Basophils % (0.0-0.4) % Basophils # (0-0.4) INR 1.20 (0.8-3.0) Sodium 136 L (137-145) mmol/L Potassium 4.3 (3.5-5.1) mmol/L Chloride 102 (98-107) mEq/L Carbon Dioxide 26 (22-30) mmol/L Anion Gap 12.8 MEQ/L BUN 8 (7-17) mg/dl Creatinine 0.65 (0.52-1.04) mg/dl Estimated GFR > 60 ML/MIN Glucose 100 (74-106) mg/dL Calcium 8.7 (8.4-10.2) mg/dl Troponin I (0.000-0.034) ng/ml TSH 3rd Generation 0.822 (0.47-4.68) mIU/L Radiology Exams: Radiology Procedures Category Date Time Status ECHO W/2D AND DOPPLER [US] Urgent Exams 05/01/17 17:24 Ordered VENOUS BILATERAL EXTREMITY [US] Urgent Exams 05/01/17 17:24 Ordered Assessment/Plan (1) Atrial fibrillation with RVR Current Visit: Yes Status: Acute Assessment & Plan: Dr. Valderrama was called last night and he said he could do a telemedicine consult today. He advised to start metoprolol 50 mg po bid and wean the diltiazem drip off as the pharmacist had alerted me yesterday that the hospital was very low on diltiazem drips with no other source to obtain. Her rate is controlled this AM. She was started on anticoagulation with lovenox and coumadin was started last night too. Will plan to bridge the lovenox and coumadin for at least 5 days. Her TSH was normal. Code(s): I48.91 - UNSPECIFIED ATRIAL FIBRILLATION (2) Pulmonary emboli Current Visit: Yes Status: Acute Assessment & Plan: Continue anticoagulation. Will plan for a Hematology consult as an outpatient after discharge. Will ask for RT consult and start incentive spirometry. The right sided chest pain is most likely from the PE. She has had serial negative troponins. Code(s): I26.99 - OTHER PULMONARY EMBOLISM WITHOUT ACUTE COR PULMONALE (3) Essential hypertension Current Visit: Yes Status: Acute Assessment & Plan: Her blood pressure is currently controlled. Code(s): I10 - ESSENTIAL (PRIMARY) HYPERTENSION (4) Fracture of right distal radius Current Visit: No Status: Acute Assessment & Plan: Continue management per the orthopedic surgeon. Will ask for OT/PT consult. Code(s): S52.501A - UNSP FRACTURE OF THE LOWER END OF RIGHT RADIUS, INIT
--- NOTE | 2017-05-01 09:00 | XRAY ---
Indication: Atrial fibrillation. PE. Two-dimensional sonogram and color Doppler imaging of the major venous vessels of the left and right leg was performed. Comparison: None There are occluding DVTs in the posterior tibial veins bilaterally and left peroneal vein. No thrombus in the remaining visualized common femoral, femoral, popliteal, and greater saphenous veins. Impression: Bilateral lower leg DVTs.
[2017-05-01] MEDS ORDERED: Sodium Chloride 0.9% 10 ML FLUSH Syringe IV PRN (09:35)
[2017-05-01] MEDS: Pepcid 20 MG VIAL IV SCH ×2 (09:43→21:04)
[2017-05-01] MEDS: ENOXAPARIN SODIUM SQ SCH ×2 (09:43→21:02)
[2017-05-01] MEDS: MAG-OX 400 PO SCH (09:44)
[2017-05-01] MEDS: Klor Con 10 MEQ PO SCH (09:44)
[2017-05-01] MEDS: Sodium Chloride 0.9% 10 ML FLUSH Syringe IV SCH ×2 (09:53→21:03)
[2017-05-01] MEDS ORDERED: NON-FORMULARY ITEM (Aspirin [Aspirin] 81 MG) PO SCH (10:00)
[2017-05-01] MEDS ORDERED: Lopressor 50 MG PO SCH (10:00)
[2017-05-01] MEDS ORDERED: Lanoxin 0.5 MG/2 ML INJECTION IV ONE (13:00)
[2017-05-01] MEDS: Coumadin 5 MG PO SCH (17:21)
[2017-05-01] MEDS: Lopressor 50 MG PO SCH (17:22)
[2017-05-02] MEDS: Sodium Chloride 0.9% 10 ML FLUSH Syringe IV SCH (05:39)
[2017-05-02] MEDS: Lopressor 50 MG PO SCH ×2 (05:39→18:06)
[2017-05-02 06:14] LABS: BASOPHIL % 0.3 % (0.0-0.4); Basophil (Absolute #) 0.02 (0-0.4); Eosinophil % 1.4 % (0.00-5.0); Eosinophil (Absolute #) 0.11 (0-0.5); Granulocytes % 72.2 % (36.0-66.0); Hematocrit 37.3 % (35-47); Hemoglobin 12.6 gm/dl (12.0-16.0); Lymphocyte (Absolute #) 1.41 (1.0-4.6); Lymphocytes % 18.2 % (24.0-44.0); Mean Cell Volume 97.6 fl (78-100); Mean Corpuscular Hemoglobin 32.9 pg (26-32); Mean Corpuscular Hgb Concent. 33.8 g/dl (32-36); Mean Platelet Volume 9.9 fl (6-9.5); Monocyte (Absolute #) 0.61 (0.0-1.3); Monocytes % 7.9 % (0.0-12.0); Platelet Count 310 K/mm3 (150-450); Red Blood Count 3.82 M/mm3 (4.1-5.4); Red Cell Distribution Width 13.3 % (11.5-14.0); White Blood Count 7.8 K/mm3 (4.0-10.5)
[2017-05-02 06:29] LABS: INR 1.22 (0.8-3.0)
[2017-05-02 06:37] LABS: ANION GAP 14.3 MEQ/L; BLOOD UREA NITROGEN 10 mg/dl (7-17); CHLORIDE 103 mEq/L (98-107); Calcium 8.5 mg/dl (8.4-10.2); Carbon Dioxide 24 mmol/L (22-30); Creatinine 1 0.62 mg/dl (0.52-1.04); Glucose 160 mg/dL (74-106); Potassium 4.2 mmol/L (3.5-5.1); SODIUM 137 mmol/L (137-145)
[2017-05-02] MEDS ORDERED: Coumadin 2.5 MG PO ONE (08:02)
[2017-05-02] MEDS ORDERED: Lopressor 25MG Tab PO ONE (08:14)
--- NOTE | 2017-05-02 08:22 | PCM.NOTE ---
Date and Time: 05/02/17817 Subjective Assessment: She reports that she is feeling better. She had a stool yesterday and today and has a good appetite. She reports her right upper quadrant pain is better. She has decided to do rehab here in a swing bed. - Review of Systems Constitutional: No Symptoms Eyes: No Symptoms Ears, Nose, & Throat: No Symptoms Respiratory: No Symptoms Cardiac: No Symptoms Abdominal/Gastrointestinal: No Symptoms Genitourinary Symptoms: No Symptoms Musculoskeletal: No Symptoms Objective Exam General Appearance: no apparent distress, alert Neurologic Exam: alert, cooperative, normal mood/affect Skin Exam: normal color, warm, dry, No rash Cardiovascular Exam: other (tachycardic, irregularly irregular), No murmur, No friction rub, No gallop Gastrointestinal/Abdomen Exam: soft, normal bowel sounds, No tenderness, No distention, No mass Extremity Exam: normal inspection, other (no c/c/e) OBJECTIVE DATA Vital Signs: Vital Signs - 24 hr Temp Pulse Resp BP Pulse Ox 05/02/17 04:00 98.7 F 111 H 26 H 137/81 95 05/02/17 00:01 100 H 05/02/17 00:00 97.8 F 100 H 22 120/86 94 L 05/01/17 20:00 97.9 F 103 H 18 123/91 94 L 05/01/17 16:00 97.7 F 122 H 22 131/80 96 05/01/17 12:04 117 H 116/97 05/01/17 12:00 104 H 05/01/17 11:42 97.5 F 104 H 15 94/70 94 L 05/01/17 10:00 103 H 18 95 05/01/17 09:00 92 H 27 H 120/75 95 Pain Assessment - Last Documented Pain Intensity 3 Pain Scale Used 0-10 Pain Scale Intake and Output: Intake & Output 04/30/17 05/01/17 05/02/17 05/03/17 06:59 06:59 06:59 06:59 Intake Total 643 790 Output Total 200 1300 Balance 443 -510 Weight 90.2 kg 91.4 kg Lab Results: Lab Results-Last 24 Hours 05/02/17 05/02/17 05/02/17 Range/Units 05:55 05:55 05:55 WBC 7.8 (4.0-10.5) K/mm3 RBC 3.82 L (4.1-5.4) M/mm3 Hgb 12.6 (12.0-16.0) gm/dl Hct 37.3 (35-47) % MCV 97.6 (78-100) fl MCH 32.9 H (26-32) pg MCHC 33.8 (32-36) g/dl RDW 13.3 (11.5-14.0) % Plt Count 310 (150-450) K/mm3 MPV 9.9 H (6-9.5) fl Gran % 72.2 H (36.0-66.0) % Lymphocytes % 18.2 L (24.0-44.0) % Monocytes % 7.9 (0.0-12.0) % Eosinophils % 1.4 (0.00-5.0) % Basophils % 0.3 (0.0-0.4) % Basophils # 0.02 (0-0.4) INR 1.22 (0.8-3.0) Sodium 137 (137-145) mmol/L Potassium 4.2 (3.5-5.1) mmol/L Chloride 103 (98-107) mEq/L Carbon Dioxide 24 (22-30) mmol/L Anion Gap 14.3 MEQ/L BUN 10 (7-17) mg/dl Creatinine 0.62 (0.52-1.04) mg/dl Estimated GFR > 60 ML/MIN Glucose 160 H (74-106) mg/dL Calcium 8.5 (8.4-10.2) mg/dl Radiology Exams: Radiology Procedures Category Date Time Status ECHO W/2D AND DOPPLER [US] Urgent Exams 05/01/17 17:24 Taken VENOUS BILATERAL EXTREMITY [US] Urgent Exams 05/01/17 17:24 Completed Multi-Disciplinary Progress Notes: Multi-Disciplinary Progress Notes 05/01/17 13:15 (created 05/01/17 15:14) Case Management Note by Katalina Marie DISCHARGE PLAN REVIEWED IN LENGTH WITH PT AND SISTER. PT REPORTS THAT SHE LIVES AT HOME, INDEPENDENT WITH ALL ADL'S. HAS BEEN USING [facility], NURSING, AIDE, AND P.T. SINCE SHE FRACTURED HER WRIST. HSA A HANDICAPPED SON THAT LIVES WITH HER, BUT IS INDEPENDENT, AND REPORTS THAT HE CAN ASSIST WELL. ALSO, REPORTS THAT SHE HAS FAMILY NEARBY THAT ASSIST AT TIMES. DISCUSSED SWING BED IN LENGTH FOR SHORT TERM REHAB STAY AN OPTION ON DISCHARGE FROM ACUTE CARE. PT REPORTS THAT SHE FEELS THAT SHE WOULD PREFER TO RETURN HOME WITH [facility], BUT ALSO REPORTS THAT SHE WILL DISCUSS WITH HER DAUGHTER WHEN SHE VISITS THIS EVENING. DECLINED ADDNL NEEDS AT PRESENT. WILL CONTINUE TO FOLLOW AND ASSESS FOR ALL DC NEEDS. Initialized on 05/01/17 15:14 - END OF NOTE Assessment/Plan (1) Atrial fibrillation with RVR Current Visit: Yes Status: Acute Assessment & Plan: She is currently on metoprolol 50 mg po bid. Will increase to 75 mg po bid with metoprolol and continue digoxin as ordered by Dr. Valderrama. He saw her yesterday and I appreciate his consult and he will follow up with her as an outpatient. Continue anticoagulation. Her INR is currently 1.22. Will give an extra 2.5 mg coumadin this AM and change daily coumadin to 6 mg daily in the evening. Continue daily INR. Continue lovenox. Code(s): I48.91 - UNSPECIFIED ATRIAL FIBRILLATION (2) Pulmonary emboli Current Visit: Yes Status: Acute Assessment & Plan: Continue anticoagulation as above. She remains on room air. Will plan for hematology consult as an outpatient. Code(s): I26.99 - OTHER PULMONARY EMBOLISM WITHOUT ACUTE COR PULMONALE (3) Essential hypertension Current Visit: Yes Status: Acute Assessment & Plan: Currently controlled on metoprolol. Code(s): I10 - ESSENTIAL (PRIMARY) HYPERTENSION (4) Fracture of right distal radius Current Visit: No Status: Acute Assessment & Plan: Continue with management per orthopedic surgeon. Code(s): S52.501A - UNSP FRACTURE OF THE LOWER END OF RIGHT RADIUS, INIT (5) DVT, bilateral lower limbs Current Visit: Yes Status: Acute Assessment & Plan: Continue anticoagulation. Code(s): I82.403 - ACUTE EMBOLISM AND THOMBOS UNSP DEEP VEINS OF LOW EXTRM, BI
[2017-05-02] MEDS: MAG-OX 400 PO SCH (09:33)
[2017-05-02] MEDS: Klor Con 10 MEQ PO SCH (09:33)
[2017-05-02] MEDS: Lanoxin 0.125MG TABLET PO SCH (09:33)
[2017-05-02] MEDS: Pepcid 20 MG VIAL IV SCH ×2 (09:34→21:09)
[2017-05-02] MEDS: ENOXAPARIN SODIUM SQ SCH ×2 (09:36→21:09)
[2017-05-02] MEDS ORDERED: Coumadin 3 MG PO SCH (18:00)
[2017-05-02] MEDS ORDERED: Coumadin 2 MG PO SCH (18:00)
[2017-05-03 05:29] LABS: BASOPHIL % 0.4 % (0.0-0.4); Basophil (Absolute #) 0.03 (0-0.4); Eosinophil % 1.3 % (0.00-5.0); Granulocyte Absolute (ANC) 5.43 (1.4-6.9); Granulocytes % 68.9 % (36.0-66.0); Hematocrit 37.2 % (35-47); Hemoglobin 12.5 gm/dl (12.0-16.0); Lymphocyte (Absolute #) 1.57 (1.0-4.6); Lymphocytes % 19.9 % (24.0-44.0); Mean Cell Volume 97.4 fl (78-100); Mean Corpuscular Hemoglobin 32.7 pg (26-32); Mean Corpuscular Hgb Concent. 33.6 g/dl (32-36); Mean Platelet Volume 9.5 fl (6-9.5); Monocyte (Absolute #) 0.75 (0.0-1.3); Monocytes % 9.5 % (0.0-12.0); Platelet Count 333 K/mm3 (150-450); Red Blood Count 3.82 M/mm3 (4.1-5.4); Red Cell Distribution Width 13.2 % (11.5-14.0); White Blood Count 7.9 K/mm3 (4.0-10.5)
[2017-05-03] MEDS: Lopressor 50 MG PO SCH (05:37)
[2017-05-03 05:50] LABS: INR 1.32 (0.8-3.0)
[2017-05-03 05:54] LABS: ANION GAP 13.2 MEQ/L (5-15); BLOOD UREA NITROGEN 10 mg/dl (7-17); CHLORIDE 104 mEq/L (98-107); Calcium 8.6 mg/dL (8.4-10.2); Carbon Dioxide 25 mmol/L (22-30); Creatinine 1 0.59 mg/dl (0.52-1.04); Glucose 102 mg/dL (74-106); Potassium 4.2 mmol/L (3.5-5.1); SODIUM 138 mmol/L (137-145)
[2017-05-03] MEDS: ENOXAPARIN SODIUM SQ SCH (08:15)
[2017-05-03] MEDS ORDERED: Coumadin 2.5 MG PO ONE (09:15)
[2017-05-03] MEDS ORDERED: Lopressor 25MG Tab PO ONE (09:17)
--- NOTE | 2017-05-03 09:21 | PCM.DCORD ---
- Discharge Discharge Date: 05/03/17 Disposition: Swing Bed @ [facility] Condition: Good Prescriptions: New Warfarin Sodium 3 mg [Coumadin 3 MG] 6 mg PO DAILY@1800 tablet Enoxaparin Sodium [Enoxaparin Sodium] 90 mg SQ Q12H ml Potassium Chloride 10 Meq Tab* [Klor Con 10 MEQ] 10 meq PO DAILY tab Digoxin 0.125 mg Tablet [Lanoxin 0.125MG TABLET] 0.25 mg PO DAILY tablet Metoprolol Tartrate 50 mg [Lopressor 50 MG] 100 mg PO BID@0600,1800 tablet Magnesium Oxide 400 mg [Mag-Ox 400] 400 mg PO DAILY tablet Ranitidine HCl 150 mg PO BID #60 tablet NaCl 0.9% 10 ML FLUSH [Sodium Chloride 0.9% 10 ML FLUSH Syringe] 10 ml IV Q8HT disp.syrin NaCl 0.9% 10 ML FLUSH [Sodium Chloride 0.9% 10 ML FLUSH Syringe] 10 ml IV PRN PRN disp.syrin PRN Reason: FLUSH Acetaminophen 325 mg [Tylenol 325 mg] 650 mg PO Q4H PRN PRN tablet PRN Reason: Pain And/Or Fever Discontinued Potassium Chloride 10 Meq Tab* [Klor Con 10 MEQ] 10 meq PO DAILY Diltiazem HCl [Cartia Xt] 180 mg PO DAILY Magnesium Oxide 400 mg [Mag-Ox 400] 400 mg PO DAILY Aspirin 81 mg PO DAILY Additional Instructions: Daily INR Follow up with: ALYCE GONZALEZ [Primary Care Provider] - 1 Week
[2017-05-03] MEDS: Lanoxin 0.125MG TABLET PO SCH (10:31)
[2017-05-03] MEDS: Klor Con 10 MEQ PO SCH (10:31)
[2017-05-03] MEDS: MAG-OX 400 PO SCH (10:33)
[2017-05-03] MEDS: Pepcid 20 MG VIAL IV SCH (10:34)
[2017-05-03 10:39] VITALS: BP 125/74; PULSE 101
[2017-05-03 11:06] VITALS: O2SAT 95
[2017-05-03] MEDS: Sodium Chloride 0.9% 10 ML FLUSH Syringe IV SCH ×2 (12:58→13:01)
--- NOTE | 2017-05-03 14:48 | DS ---
DISCHARGE DIAGNOSES: 1) ATRIAL FIBRILLATION WITH RAPID VENTRICULAR RESPONSE. 2) BILATERAL PULMONARY EMBOLI. 3) BILATERAL DEEP VENOUS THROMBOSIS IN HER LEGS. 4) HYPERTENSION. 5) RIGHT WRIST FRACTURE. DISCHARGE PHYSICAL EXAMINATION: VITALS: Temperature current 97.5F, temperature max 99.5F, heart rate 90 to 111, respiratory rate 16 to 24, blood pressure 125 to 143 over 67 to 78, weight 90.4 kg. Oxygen saturation 94 to 95% on room air. GENERAL: The patient is sitting up in her chair, a pleasant talkative lady in no acute distress. CVS: She has an irregularly irregular rhythm with no murmurs, gallops or rubs appreciated. CHEST: Clear to auscultation bilaterally. No tachypnea. No retractions. ABDOMEN: Soft, nontender, nondistended with normal bowel sounds. EXTREMITIES: No clubbing, cyanosis or edema. SKIN: Warm, dry and intact. HOSPITAL COURSE: 1) ATRIAL FIBRILLATION WITH RAPID VENTRICULAR RESPONSE: She was initially placed on Cardizem drip after bolus of Cardizem. Dr. Valderrama was consulted and saw her as a tele-medicine consult the next day. I had talked with him the day of her admission and he suggested starting metoprolol 50 mg b.i.d. which was started. She was weaned off the drip but continued to have a rapid ventricular response so he started her on digoxin which he has continued. I slowly increased her metoprolol. She is now up to 100 mg b.i.d. at the time of discharge. Will continue to monitor her heart rate. She is fully anticoagulated due to the pulmonary embolism. She is on Lovenox 1 mg/kg subcutaneously b.i.d. and she was also started on warfarin. She was given 5 mg daily and then on 05/02/2017 she was given an extra 2.5 mg and increased to 6 mg daily. On 05/03/2017, she was given extra 2.5 mg and continued on the 6 mg daily. At the time of discharge her international normalized ratio was 1.32. She will continue in the swing-bed where we can monitor her daily international normalized ratio. She will need to be on Lovenox with Coumadin bridge for at least five days but as her international normalized ratio is just slowly increasing it will probably be longer than this. I have asked for dietary consult to talk to her about vitamin K. 2) BILATERAL PULMONARY EMBOLISM: These were found on CT scan of her chest in the emergency department. Will plan for her to follow up as an outpatient with horizontal boring mill operator. After the pulmonary embolisms were found she had Doppler's done and had bilateral lower extremity deep venous thromboses as well. Please see the radiologist report for details. She has never required any oxygen. Part of her tachycardia may be due to the pulmonary embolism however. 3) HYPERTENSION: Her blood pressure has been well controlled during her stay. 4) RIGHT WRIST FRACTURE: She is currently in a cast and following up with Dr. Albert Bob as an outpatient. 5) DECONDITIONING: Will continue with rehab in the swing-bed. DISCHARGE MEDICATIONS: Please see the discharge order.
[2017-05-03] MEDS ORDERED: Lopressor 50 MG PO SCH (18:00)
--- NOTE | 2017-05-04 13:52 | ECHO ---
DATE OF PROCEDURE: 05/01/2017 CLINICAL INFORMATION: Atrial fibrillation, pulmonary embolism. The left ventricular systolic function is moderately decreased diffusely with an ejection fraction approximately 35%. The left ventricle was normal in size with a dimension of 4.3 cm. The septal wall thickness is at the upper limits of normal being 1.1 cm. The left ventricular posterior wall thickness is borderline increased at 1.2 cm. There is a moderate decrease in right ventricular systolic function. The left atrium is mildly dilated with a dimension of 4.5 cm. Interatrial septum is intact. The right atrium is mild to moderately dilated. There is no apical thrombus noted in the left ventricle. The aortic valve opens well. There is mild sclerosis present and it is trileaflet. There is no aortic regurgitation present. There is moderate mitral regurgitation. There is thickening of the mitral valve leaflets. There is moderate tricuspid regurgitation. The right ventricular systolic pressure is mildly elevated at 36 mm of Mercury. There is mild pulmonic regurgitation present. The aortic root is normal at 3.2 cm. There is no pericardial effusion present. IMPRESSION: 1) MODERATE DECREASE IN LEFT AND RIGHT SYSTOLIC FUNCTION. 2) MILD LEFT ATRIAL DILATATION. 3) BORDERLINE CON CENTRIC LEFT VENTRICULAR HYPERTROPHY. 4) MODERATE MITRAL REGURGITATION. 5) MODERATE TRICUSPID REGURGITATION. 6) MILD PULMONARY HYPERTENSION. 7) MILD PULMONIC REGURGITATION. 8) MODERATE DECREASE IN RIGHT VENTRICULAR SYSTOLIC FUNCTION.
== END 2017-05-03 14:40 | disposition swing bed (61) | DRG 308 ==
LOC: ED 12:47 → ICU 17:00 → MED SURG 05-02 14:05
PROVIDERS: ADMIT Internal Medicine; ATTEND Internal Medicine
DX: I48.91 Unspecified atrial fibrillation (principal); I26.99 Other pulmonary embolism without acute cor pulmonale; I82.4Z3 Acute embolism and thrombosis of unspecified deep veins of distal lower extremity, bilateral; M19.90 Unspecified osteoarthritis, unspecified site; S52.501A Unspecified fracture of the lower end of right radius, initial encounter for closed fracture; Z79.01 Long term (current) use of anticoagulants; I10 Essential (primary) hypertension; M85.80 Other specified disorders of bone density and structure, unspecified site
CPT/HCPCS: 36000; 36415; 71046; 71260; 76705; 80048; 80053; 81002; 83690; 83735; 84443; 84484; 85025; 85379; 85610; 85730; 93005; 93306; 93970; 96365; 96366; 96374; 99285; J1160; J1650; J2405; Q3014; 97110-GP; A9270-GY

== ENCOUNTER 2017-05-03 10:27 | Inpatient (IN) | payer MEDICARE, OTHER ==
[2017-05-03] MEDS ORDERED: Sodium Chloride 0.9% 10 ML FLUSH Syringe IV PRN (15:58)
[2017-05-03] MEDS ORDERED: ENOXAPARIN SODIUM SQ SCH (15:58)
[2017-05-03] MEDS ORDERED: TYLENOL 325 MG PO PRN (15:58)
[2017-05-03] MEDS: Lopressor 50 MG PO SCH (17:21)
[2017-05-03] MEDS: Coumadin 3 MG PO SCH (17:22)
[2017-05-03] MEDS: Sodium Chloride 0.9% 10 ML FLUSH Syringe IV SCH (20:58)
[2017-05-03] MEDS: Pepcid 20 MG VIAL IV SCH (20:58)
[2017-05-03] MEDS: ENOXAPARIN SODIUM SQ SCH (20:58)
[2017-05-04 05:31] LABS: BASOPHIL % 0.4 % (0.0-0.4); Basophil (Absolute #) 0.02 (0-0.4); Eosinophil % 2.7 % (0.00-5.0); Eosinophil (Absolute #) 0.15 (0-0.5); Granulocyte Absolute (ANC) 3.55 (1.4-6.9); Granulocytes % 63.8 % (36.0-66.0); Hematocrit 38.3 % (35-47); Hemoglobin 12.8 gm/dl (12.0-16.0); Lymphocyte (Absolute #) 1.28 (1.0-4.6); Mean Corpuscular Hemoglobin 32.4 pg (26-32); Mean Corpuscular Hgb Concent. 33.4 g/dl (32-36); Mean Platelet Volume 9.5 fl (6-9.5); Monocyte (Absolute #) 0.56 (0.0-1.3); Monocytes % 10.1 % (0.0-12.0); Platelet Count 360 K/mm3 (150-450); Red Blood Count 3.95 M/mm3 (4.1-5.4); Red Cell Distribution Width 13.2 % (11.5-14.0); White Blood Count 5.6 K/mm3 (4.0-10.5)
[2017-05-04] MEDS: Lopressor 50 MG PO SCH ×2 (05:38→18:30)
[2017-05-04] MEDS: Sodium Chloride 0.9% 10 ML FLUSH Syringe IV SCH ×2 (05:38→21:13)
[2017-05-04 05:53] LABS: INR 1.56 (0.8-3.0)
[2017-05-04 06:03] LABS: ANION GAP 12.7 MEQ/L (5-15); BLOOD UREA NITROGEN 10 mg/dl (7-17); CHLORIDE 107 mEq/L (98-107); Calcium 8.8 mg/dL (8.4-10.2); Carbon Dioxide 25 mmol/L (22-30); Creatinine 1 0.65 mg/dl (0.52-1.04); Glucose 104 mg/dL (74-106); Potassium 4.2 mmol/L (3.5-5.1); SODIUM 140 mmol/L (137-145)
[2017-05-04] MEDS: ENOXAPARIN SODIUM SQ SCH ×2 (07:55→21:07)
[2017-05-04] MEDS ORDERED: Aplisol ID SCH (10:00)
[2017-05-04] MEDS: Pepcid 20 MG VIAL IV SCH ×2 (11:09→21:10)
[2017-05-04] MEDS: Lanoxin 0.125MG TABLET PO SCH (11:09)
[2017-05-04] MEDS: MAG-OX 400 PO SCH (11:10)
[2017-05-04] MEDS: Klor Con 10 MEQ PO SCH (11:10)
[2017-05-04] MEDS: Coumadin 3 MG PO SCH (18:30)
[2017-05-05] MEDS: Lopressor 50 MG PO SCH ×2 (05:31→17:32)
[2017-05-05] MEDS: Sodium Chloride 0.9% 10 ML FLUSH Syringe IV SCH ×4 (05:33→21:18)
[2017-05-05 05:53] LABS: INR 1.59 (0.8-3.0)
[2017-05-05] MEDS: ENOXAPARIN SODIUM SQ SCH ×2 (07:30→19:34)
[2017-05-05] MEDS: Klor Con 10 MEQ PO SCH (09:40)
[2017-05-05] MEDS: Lanoxin 0.125MG TABLET PO SCH (09:40)
[2017-05-05] MEDS: Pepcid 20 MG VIAL IV SCH ×2 (09:41→21:18)
[2017-05-05] MEDS: MAG-OX 400 PO SCH (09:41)
[2017-05-05] MEDS: Coumadin 3 MG PO SCH (17:33)
[2017-05-06] MEDS: Lopressor 50 MG PO SCH ×2 (05:46→17:22)
[2017-05-06] MEDS: Sodium Chloride 0.9% 10 ML FLUSH Syringe IV SCH ×3 (05:49→21:23)
[2017-05-06 06:23] LABS: INR 1.6 (0.8-3.0)
[2017-05-06] MEDS: ENOXAPARIN SODIUM SQ SCH ×2 (07:55→20:43)
--- NOTE | 2017-05-06 09:22 | PCM.NOTE ---
Date and Time: 05/06/17917 Subjective Assessment: patient denies chest pain or dyspnea, no swelling in lower extremities today overall feels well. tolerating po intake Objective Exam General Appearance: no apparent distress, alert Skin Exam: normal color, warm, dry Respiratory Exam: normal breath sounds, lungs clear, No respiratory distress Cardiovascular Exam: regular rate/rhythm, normal heart sounds Gastrointestinal/Abdomen Exam: soft, No tenderness, No mass Extremity Exam: normal inspection, normal range of motion OBJECTIVE DATA Vital Signs: Vital Signs - 24 hr Temp Pulse Resp BP BP Pulse Ox 05/06/17 07:07 98.4 F 87 16 137/71 96 05/05/17 19:44 97.6 F 97 H 20 138/78 96 05/05/17 09:40 105 H 159/91 Pain Assessment - Last Documented Pain Intensity 0 Pain Scale Used 0-10 Pain Scale Intake and Output: Intake & Output 05/03/17 05/04/17 05/05/17 05/06/17 11:59 11:59 11:59 12:59 Intake Total 1370 1380 1220 Output Total 2700 750 1300 Balance -1330 630 -80 Weight 89.1 kg 89.1 kg Lab Results: Lab Results-Last 24 Hours 05/06/17 Range/Units 05:59 INR 1.60 (0.8-3.0) Assessment/Plan (1) Pulmonary emboli Current Visit: No Status: Acute Assessment & Plan: INR hovering around 1.6, will increase from 6 to 7mg warfarin today and repeat INR in am. no other changes Code(s): I26.99 - OTHER PULMONARY EMBOLISM WITHOUT ACUTE COR PULMONALE (2) Atrial fibrillation with RVR Current Visit: No Status: Acute Code(s): I48.91 - UNSPECIFIED ATRIAL FIBRILLATION (3) DVT, bilateral lower limbs Current Visit: No Status: Acute Code(s): I82.403 - ACUTE EMBOLISM AND THOMBOS UNSP DEEP VEINS OF LOW EXTRM, BI (4) Essential hypertension Current Visit: No Status: Acute Code(s): I10 - ESSENTIAL (PRIMARY) HYPERTENSION (5) Fracture of right distal radius Current Visit: No Status: Acute Code(s): S52.501A - UNSP FRACTURE OF THE LOWER END OF RIGHT RADIUS, INIT
[2017-05-06] MEDS: Lanoxin 0.125MG TABLET PO SCH (10:22)
[2017-05-06] MEDS: Pepcid 20 MG VIAL IV SCH ×2 (10:22→21:23)
[2017-05-06] MEDS: MAG-OX 400 PO SCH (10:22)
[2017-05-06] MEDS: Klor Con 10 MEQ PO SCH (10:22)
[2017-05-06] MEDS: Coumadin 3 MG PO SCH (17:23)
[2017-05-06] MEDS: Coumadin 2 MG PO SCH (17:23)
[2017-05-07 05:51] LABS: INR 1.58 (0.8-3.0)
[2017-05-07] MEDS: Lopressor 50 MG PO SCH ×2 (06:29→17:29)
[2017-05-07] MEDS: Sodium Chloride 0.9% 10 ML FLUSH Syringe IV SCH ×3 (06:30→21:03)
[2017-05-07] MEDS: MAG-OX 400 PO SCH (09:04)
[2017-05-07] MEDS: Lanoxin 0.125MG TABLET PO SCH (09:04)
[2017-05-07] MEDS: Klor Con 10 MEQ PO SCH (09:07)
[2017-05-07] MEDS: Pepcid 20 MG VIAL IV SCH ×2 (09:07→21:02)
[2017-05-07] MEDS: ENOXAPARIN SODIUM SQ SCH ×2 (09:09→21:02)
[2017-05-07] MEDS: Coumadin 3 MG PO SCH (17:28)
[2017-05-07] MEDS: Coumadin 2 MG PO SCH (17:28)
[2017-05-08] MEDS: Lopressor 50 MG PO SCH ×2 (05:53→17:53)
[2017-05-08] MEDS: Sodium Chloride 0.9% 10 ML FLUSH Syringe IV SCH ×3 (05:54→21:10)
[2017-05-08 06:09] LABS: INR 1.46 (0.8-3.0)
[2017-05-08] MEDS: ENOXAPARIN SODIUM SQ SCH ×2 (08:48→20:30)
[2017-05-08] MEDS: MAG-OX 400 PO SCH (09:57)
[2017-05-08] MEDS: Lanoxin 0.125MG TABLET PO SCH (09:57)
[2017-05-08] MEDS: Pepcid 20 MG VIAL IV SCH ×2 (09:59→21:10)
[2017-05-08] MEDS: Klor Con 10 MEQ PO SCH (10:04)
--- NOTE | 2017-05-08 13:10 | PCM.NOTE ---
Date and Time: 05/08/17 1306 Subjective Assessment: Patient denies any abdominal pain or shortness of breath or chest pain. She has been up walking with rehab. She reports she has not yet seen the dietitian about help with diet with coumadin. Her coumadin was increased from 6 mg to 7 mg 2 days ago and her INR went down slightly. She is unable to afford lovenox as an outpatient. - Review of Systems Constitutional: No Symptoms Ears, Nose, & Throat: No Symptoms Respiratory: No Symptoms Cardiac: No Symptoms Abdominal/Gastrointestinal: No Symptoms Genitourinary Symptoms: No Symptoms Skin: Other (easy bruising) Objective Exam General Appearance: no apparent distress, alert, obese Neurologic Exam: alert, cooperative, normal mood/affect Skin Exam: normal color, warm, dry, rash, ecchymosis, other (bruises on arms and hands) Cardiovascular Exam: other (irregularly irregular rhythm, regular rate, no m/g/r ) Gastrointestinal/Abdomen Exam: soft Extremity Exam: normal inspection, other (no c/c), No swelling OBJECTIVE DATA Vital Signs: Vital Signs - 24 hr Temp Pulse Resp BP BP Pulse Ox 05/08/17 09:57 62 141/66 05/08/17 07:04 97.4 F 85 16 141/66 95 05/07/17 21:00 98.5 F 99 H 18 140/67 98 Pain Assessment - Last Documented Pain Intensity 0 Pain Scale Used FLACC Intake and Output: Intake & Output 05/06/17 05/07/17 05/08/17 05/09/17 06:59 06:59 06:59 06:59 Intake Total 1160 1280 720 Output Total 800 1400 400 Balance 360 -120 320 Lab Results: Lab Results-Last 24 Hours 05/08/17 Range/Units 05:35 INR 1.46 (0.8-3.0) Multi-Disciplinary Progress Notes: Multi-Disciplinary Progress Notes 05/08/17 11:01 Case Management Note by Ebony Dailey SPOKE WITH PT REGARDING NEED TO HAVE LOVENOX INJECTIONS WHILE INR BECOMES THERAPEUTIC. SHOULD PT DC HOME TODAY SHE WILL HAVE TO PAY $445 FOR 10DAYS WORTH OF LOVENOX INJECTIONS. PT HAS DECIDED TO REMAIN PT SWING BED UNTIL INR IS THERAPEUTIC. Initialized on 05/08/17 11:01 - END OF NOTE Assessment/Plan (1) Atrial fibrillation Current Visit: Yes Status: Acute Assessment & Plan: Continue metoprolol and digoxin. Check digoxin level in AM. Continue anticoagulation with lovenox and coumadin. Will increase coumadin to 10 mg daily from 7 mg daily which she has received x 2 days. Daily INR. Continue lovenox until INR between 2-3. Code(s): I48.91 - UNSPECIFIED ATRIAL FIBRILLATION (2) Pulmonary emboli Current Visit: No Status: Acute Assessment & Plan: Management with anticoagulation as above. Vital signs stable. She has never required oxygen. Will plan for outpatient hematology consult. Code(s): I26.99 - OTHER PULMONARY EMBOLISM WITHOUT ACUTE COR PULMONALE (3) DVT, bilateral lower limbs Current Visit: No Status: Acute Code(s): I82.403 - ACUTE EMBOLISM AND THOMBOS UNSP DEEP VEINS OF LOW EXTRM, BI (4) Fracture of right distal radius Current Visit: No Status: Acute Assessment & Plan: Management per orthopedic surgeon as an outpatient. Code(s): S52.501A - UNSP FRACTURE OF THE LOWER END OF RIGHT RADIUS, INIT (5) Essential hypertension Current Visit: No Status: Acute Assessment & Plan: Well controlled. Code(s): I10 - ESSENTIAL (PRIMARY) HYPERTENSION
[2017-05-08] MEDS: Coumadin 10 MG PO SCH (17:53)
[2017-05-09] MEDS: Sodium Chloride 0.9% 10 ML FLUSH Syringe IV SCH ×3 (05:47→22:13)
[2017-05-09] MEDS: Lopressor 50 MG PO SCH ×2 (05:47→17:47)
[2017-05-09 06:00] LABS: INR 1.54 (0.8-3.0)
[2017-05-09] MEDS ORDERED: Coumadin 2.5 MG PO ONE (08:35)
--- NOTE | 2017-05-09 08:35 | PCM.NOTE ---
Date and Time: 05/09/17 08 Subjective Assessment: She reports she feels very well. 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 I assured her that our staff would call and let them know she was here in the hospital. She was increased to 10 mg of coumadin yesterday. - Review of Systems Constitutional: No Symptoms Eyes: No Symptoms Ears, Nose, & Throat: No Symptoms Respiratory: No Symptoms Cardiac: No Symptoms Abdominal/Gastrointestinal: No Symptoms Genitourinary Symptoms: No Symptoms Musculoskeletal: No Symptoms, Other (right forearm in cast) Objective Exam General Appearance: no apparent distress, alert Neurologic Exam: alert, cooperative, normal mood/affect Skin Exam: normal color, warm, dry, No rash Respiratory Exam: normal breath sounds, lungs clear, No crackles/rales, No rhonchi, No wheezing Cardiovascular Exam: other (irregularly irregular, normal rate), No murmur, No friction rub, No gallop Gastrointestinal/Abdomen Exam: soft, normal bowel sounds, No tenderness, No distention Extremity Exam: other OBJECTIVE DATA Vital Signs: Vital Signs - 24 hr Temp Pulse Resp BP BP Pulse Ox 05/09/17 06:51 98.4 F 77 16 127/69 95 05/08/17 21:00 98.0 F 105 H 19 121/83 95 05/08/17 09:57 62 141/66 Pain Assessment - Last Documented Pain Intensity 0 Pain Scale Used FLACC Intake and Output: Intake & Output 05/07/17 05/08/17 05/09/17 05/10/17 06:59 06:59 06:59 06:59 Intake Total 1160 1280 2020 Output Total 800 1400 1800 1000 Balance 360 -120 220 -1000 Lab Results: Lab Results-Last 24 Hours 05/09/17 05/09/17 Range/Units 05:13 05:13 INR 1.54 (0.8-3.0) Digoxin 1.3 (0.8-1.9) ng/mL Multi-Disciplinary Progress Notes: Multi-Disciplinary Progress Notes 05/08/17 14:16 Physical Therapy Note by Senia Caicedo PATIENT HAS STEADILY PROGRESSED IN EXERTION TOLERANCE TRAINING AND FUNCTIONAL STRENGTHENING PROGRAM. SHE IS ABLE TO WALK 1200'+ THROUGHOUT THE HOSPITAL WITH 1 # CUFF WEIGHTS ON HER ANKLES; O2 SATS ON ROOM AIR > 94% CONSISTENTLY. 1# RESISTIVE LE EXERCISE IN SUPINE, SIT, AND STAND ARE EXECUTED WELL IN SETS OF 10 X 2. DYNAMIC BALANCE IMPROVED EVIDENCED IN STABLE INDEPENDENT GAIT. DEEP BREATHING PAIRED WITH TRUNK/CORE ACTIVITIES AND STATIC/DYNAMIC STANDING HAVE IMPROVED RESPIRATORY MUSCLE FLEXIBILITY AND STAMINA. PATIENT IS ANXIOUS TO RETURN HOME SOON INR IS WITHIN THERAPEUTIC RANGE. Initialized on 05/08/17 14:16 - END OF NOTE 05/08/17 11:01 Case Management Note by Ebony Dailey SPOKE WITH PT REGARDING NEED TO HAVE LOVENOX INJECTIONS WHILE INR BECOMES THERAPEUTIC. SHOULD PT DC HOME TODAY SHE WILL HAVE TO PAY $445 FOR 10DAYS WORTH OF LOVENOX INJECTIONS. PT HAS DECIDED TO REMAIN PT SWING BED UNTIL INR IS THERAPEUTIC. Initialized on 05/08/17 11:01 - END OF NOTE Assessment/Plan (1) Atrial fibrillation Current Visit: Yes Status: Acute Assessment & Plan: Continue coumadin 10 mg daily. Will give extra 2.5 mg today and continue to check daily INR. Continue with lovenox. Will have staff update her roller coaster engineer. Digoxin in normal range on labs today. Code(s): I48.91 - UNSPECIFIED ATRIAL FIBRILLATION (2) Pulmonary emboli Current Visit: No Status: Acute Assessment & Plan: Anticoaguation as above. Code(s): I26.99 - OTHER PULMONARY EMBOLISM WITHOUT ACUTE COR PULMONALE (3) DVT, bilateral lower limbs Current Visit: No Status: Acute Assessment & Plan: anticoagulation as above. Code(s): I82.403 - ACUTE EMBOLISM AND THOMBOS UNSP DEEP VEINS OF LOW EXTRM, BI (4) Fracture of right distal radius Current Visit: No Status: Acute Assessment & Plan: Follow up with Dr. Bob as an outpatient. Code(s): S52.501A - UNSP FRACTURE OF THE LOWER END OF RIGHT RADIUS, INIT (5) Essential hypertension Current Visit: No Status: Acute Assessment & Plan: Well controlled. Code(s): I10 - ESSENTIAL (PRIMARY) HYPERTENSION
[2017-05-09] MEDS: MAG-OX 400 PO SCH (09:48)
[2017-05-09] MEDS: Pepcid 20 MG VIAL IV SCH ×2 (09:48→22:10)
[2017-05-09] MEDS: Lanoxin 0.125MG TABLET PO SCH (09:48)
[2017-05-09] MEDS: ENOXAPARIN SODIUM SQ SCH ×2 (09:49→20:02)
[2017-05-09] MEDS: Klor Con 10 MEQ PO SCH (09:49)
[2017-05-09] MEDS: Coumadin 10 MG PO SCH (17:47)
[2017-05-10 05:59] VITALS: BP 137/78; O2SAT 98
[2017-05-10 05:59] LABS: INR 1.98 (0.8-3.0)
[2017-05-10] MEDS: Lopressor 50 MG PO SCH (05:59)
[2017-05-10] MEDS: Sodium Chloride 0.9% 10 ML FLUSH Syringe IV SCH (06:00)
[2017-05-10] MEDS: Lanoxin 0.125MG TABLET PO SCH (09:15)
[2017-05-10] MEDS: Pepcid 20 MG VIAL IV SCH (09:15)
[2017-05-10] MEDS: MAG-OX 400 PO SCH (09:15)
[2017-05-10 09:16] VITALS: PULSE 90
[2017-05-10] MEDS: Klor Con 10 MEQ PO SCH (09:16)
--- NOTE | 2017-05-10 09:37 | PCM.DCORD ---
- Discharge Discharge Date: 05/10/17 Disposition: HOME HEALTH SERVICE Condition: Good Prescriptions: New Warfarin Sodium 10 mg [Coumadin 10 MG] 10 mg PO DAILY@1800 #30 tablet Digoxin 250 mcg PO DAILY #30 tablet Metoprolol Tartrate 100 mg PO BID #60 tablet Continue Potassium Chloride 10 Meq Tab* [Klor Con 10 MEQ] 10 meq PO DAILY tab Magnesium Oxide 400 mg [Mag-Ox 400] 400 mg PO DAILY tablet Ranitidine HCl 150 mg PO BID #60 tablet Discontinued Warfarin Sodium 3 mg [Coumadin 3 MG] 6 mg PO DAILY@1800 tablet Enoxaparin Sodium [Enoxaparin Sodium] 90 mg SQ Q12H ml Digoxin 0.125 mg Tablet [Lanoxin 0.125MG TABLET] 0.25 mg PO DAILY tablet Metoprolol Tartrate 50 mg [Lopressor 50 MG] 100 mg PO BID@0600,1800 tablet NaCl 0.9% 10 ML FLUSH [Sodium Chloride 0.9% 10 ML FLUSH Syringe] 10 ml IV Q8HT disp.syrin NaCl 0.9% 10 ML FLUSH [Sodium Chloride 0.9% 10 ML FLUSH Syringe] 10 ml IV PRN PRN disp.syrin PRN Reason: FLUSH Acetaminophen 325 mg [Tylenol 325 mg] 650 mg PO Q4H PRN PRN tablet PRN Reason: Pain And/Or Fever Instructions: Pulmonary Embolism (Blood Clot in the Lungs) (DC), Anti-Clotting Medicines: Warfarin (Coumadin) Additional Instructions: Stop taking diltiazem at home. INR on 05/11/17 and 05/14/17. 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 Follow up with: ALYCE GONZALEZ [Primary Care Provider] - 1 Week
[2017-05-14] MEDS ORDERED: Aplisol ID SCH (10:00)
== END 2017-05-10 10:55 | disposition home health service (06) | DRG 308 ==
LOC: MED SURG 14:40
PROVIDERS: ADMIT Internal Medicine; ATTEND Internal Medicine
DX: I48.91 Unspecified atrial fibrillation (principal); I26.99 Other pulmonary embolism without acute cor pulmonale; I82.403 Acute embolism and thrombosis of unspecified deep veins of lower extremity, bilateral; I10 Essential (primary) hypertension; S52.501D Unspecified fracture of the lower end of right radius, subsequent encounter for closed fracture with routine healing; Z79.01 Long term (current) use of anticoagulants
CPT/HCPCS: 36415; 80048; 80162; 85025; 85610; J1650; 97110-GP; A9270-GY

== ENCOUNTER 2017-05-26 11:37 | Emergency (ER) | payer MEDICARE, OTHER ==
[2017-05-26] MEDS ORDERED: Sodium Chloride 0.9% 1000 ML 1,000 ML IV STA (12:00)
[2017-05-26] MEDS ORDERED: Phenergan 25 MG INJ IV ONE (12:00)
--- NOTE | 2017-05-26 12:03 | ERPHSYRPT ---
- History of Present Illness Time Seen by Provider: 05/26/17 11:52 Source: patient, family ([id number]) Exam Limitations: no limitations Patient Subjective Stated Complaint: pt reports she felt weak when she woke this morning-at congregational felt like she was going to vomit-denies actually vomiting or dry heaving-denies pain pressure or tightness-denies sob-denies cough-states that she has had recent vomiting and diarhea Triage Nursing Assessment: pt pink warm and [id number] all questions correctly-resp easy and nonlabored-pupils reactive-moving all extremities with ease-bilateral hand lining caser equal Physician History: 2 DAYS AGO PT HAD VOMITING AND DIARRHEA WHICH ENDED YESTERDAY AM. ABOUT 1 HOUR AGO PT BECAME GENERALLY WEAK WITH NAUSEA AND THIRST. PT WAS HOSPITALIZED AT [facility] FOR PE AND DVT FOR 10 DAYS WITH DISCHARGE ON 05/10/17. PT IS NOW TAKING COUMADIN. Allergies/Adverse Reactions: morphine Adverse Reaction (Severe, Verified 05/26/17 11:51) Nausea and Vomiting tramadol Adverse Reaction (Severe, Verified 05/26/17 11:51) Nausea and Vomiting Sulfa (Sulfonamide Antibiotics) Adverse Reaction (Verified 05/26/17 11:51) sick Home Medications: Lisinopril [Lisinopril] 5 mg PO DAILY 05/26/17 [History] Spironolactone 25 mg [Aldactone 25 MG] 25 mg PO DAILY 05/26/17 [History] Hx Tetanus, Diphtheria Vaccination/Date Given: Yes Hx Influenza Vaccination/Date Given: Yes Hx Pneumococcal Vaccination/Date Given: No Immunizations Up to Date: Yes - Review of Systems Constitutional: Weakness (GENERALIZED) Respiratory: No Dyspnea Cardiac: No Chest Pain Abdominal/Gastrointestinal: Nausea, Vomiting, Diarrhea Endocrine: Other (THIRST) All Other Systems: Reviewed and Negative - Past Medical History Pertinent Past Medical History: Yes Neurological History: No Pertinent History ENT History: No Pertinent History Cardiac History: Arrhythmia (A.FIB), Deep Vein Thrombosis, Hypertension Respiratory History: No Pertinent History Endocrine Medical History: No Pertinent History Musculoskeletal History: Arthritis GI Medical History: No Pertinent History History: No Pertinent History Psycho-Social History: No Pertinent History Female Reproductive Disorders: No Pertinent History - Past Surgical History Past Surgical History: Yes Neuro Surgical History: No Pertinent History Cardiac: No Pertinent History Respiratory: No Pertinent History Gastrointestinal: No Pertinent History Genitourinary: No Pertinent History Musculoskeletal: No Pertinent History Female Surgical History: Hysterectomy Other Surgical History: rt hand - Social History Smoking Status: Never smoker Exposure to second hand smoke: No Drug Use: none Patient Lives Alone: No - Female History Hx Now: No - Nursing Vital Signs Nursing Vital Signs: Initial Vital Signs Temperature 98.4 F 05/26/17 11:48 Pulse Rate 87 05/26/17 11:48 Respiratory Rate 18 05/26/17 11:48 Blood Pressure 149/78 05/26/17 11:48 O2 Sat by Pulse Oximetry 96 05/26/17 11:48 Pain Scale Pain Intensity 0 - Physical Exam General Appearance: alert Eye Exam: PERRL/EOMI Ears, Nose, Throat Exam: dry mucous membranes Neck Exam: normal inspection Respiratory Exam: lungs clear Cardiovascular Exam: irregular, No gallop Gastrointestinal/Abdomen Exam: soft, other (B.S. MILDLY HYPERACTIVE AND NORMOTONIC), No tenderness Back Exam: normal range of motion Extremity Exam: normal inspection, No pedal edema Neurologic Exam: alert, cooperative Skin Exam: warm, dry SpO2 Interpretation: normal SpO2: 96 Oxygen Delivery: Room Air - Course Nursing assessment & vital signs reviewed: Yes EKG Interpreted by Me: RATE (85), A-fib, Left Perryman Deviation, Non-specific ST Changes Ordered Tests: Active Orders 24 hr Category Date Time Status Clean Catch Urine Specimen STAT Care 05/26/17 12:00 Active EKG-ER Only STAT Care 05/26/17 12:00 Active IV Insertion STAT Care 05/26/17 12:00 Active CHEST 1 VIEW (PORTABLE) Stat Exams 05/26/17 12:01 Taken AMYLASE Stat Lab 05/26/17 12:35 Completed CBC W DIFF Stat Lab 05/26/17 12:35 Completed CMP Stat Lab 05/26/17 12:35 Completed CULTURE,URINE Stat Lab 05/26/17 12:30 Received D-DIMER QUANTITATION Stat Lab 05/26/17 12:35 Completed LIPASE Stat Lab 05/26/17 12:35 Completed MAGNESIUM Stat Lab 05/26/17 12:35 Completed PROTIME WITH INR Stat Lab 05/26/17 12:35 Completed PTT Stat Lab 05/26/17 12:35 Completed TROPONIN Q3H Lab 05/26/17 12:35 Completed TROPONIN Q3H Lab 05/26/17 15:00 Ordered TROPONIN Q3H Lab 05/26/17 18:00 Ordered TROPONIN Q3H Lab 05/26/17 21:00 Ordered TROPONIN Q3H Lab 05/27/17 00:00 Ordered UA W/ MICROSCOPIC Stat Lab 05/26/17 12:30 Completed Medication Summary Generic Name Dose Route Start Last Admin Trade Name Susie PRN Reason Stop Dose Admin Ceftriaxone Sodium/Dextrose 1 g in 50 mls @ 100 mls/hr 05/26/17 14:13 Rocephin 1 Gm-D5w 50 Ml Bag IV 05/26/17 14:42 STAT STA Discontinued Medications Generic Name Dose Route Start Last Admin Trade Name Freq PRN Reason Stop Dose Admin Sodium Chloride 1,000 mls @ 999 mls/hr 05/26/17 12:00 05/26/17 12:18 Sodium Chloride 0.9% 1000 Ml IV 05/26/17 13:00 999 mls/hr .Q1H1M STA Administration Sodium Chloride Confirm 05/26/17 12:13 Sodium Chloride 0.9% 1000 Ml Administered 05/26/17 12:14 Dose 1,000 mls @ ud .ROUTE .STK-MED ONE Promethazine HCl 12.5 mg 05/26/17 12:00 05/26/17 12:19 Phenergan 25 Mg Inj IV 05/26/17 12:01 12.5 mg STAT ONE Administration Promethazine HCl Confirm 05/26/17 12:12 Phenergan 25 Mg Inj Administered 05/26/17 12:13 Dose 25 mg .ROUTE .STK-MED ONE Lab/Rad Data: Laboratory Result Diagrams 05/26/17 12:35 05/26/17 12:35 Laboratory Results 05/26/17 05/26/17 05/26/17 Range/Units 12:35 12:35 12:35 WBC 6.3 (4.0-10.5) K/mm3 RBC 4.29 (4.1-5.4) M/mm3 Hgb 14.1 (12.0-16.0) gm/dl Hct 41.6 (35-47) % MCV 97.0 (78-100) fl MCH 32.9 H (26-32) pg MCHC 33.9 (32-36) g/dl RDW 13.8 (11.5-14.0) % Plt Count 245 (150-450) K/mm3 MPV 9.9 H (6-9.5) fl Gran % 72.0 H (36.0-66.0) % Eos # (Auto) 0.08 (0-0.5) Absolute Lymphs (auto) 1.04 (1.0-4.6) Absolute Monos (auto) 0.64 (0.0-1.3) Lymphocytes % 16.4 L (24.0-44.0) % Monocytes % 10.1 (0.0-12.0) % Eosinophils % 1.3 (0.00-5.0) % Basophils % 0.2 (0.0-0.4) % Absolute Granulocytes 4.56 (1.4-6.9) Basophils # 0.01 (0-0.4) PT 35.5 H (9.95-12.35) SECONDS INR 3.16 H (0.8-3.0) APTT 35.5 (25.3-37.0) SECONDS D-Dimer 226.05 (215-500) ng/mL Sodium 141 (137-145) mmol/L Potassium 3.9 (3.5-5.1) mmol/L Chloride 108 H (98-107) mmol/L Carbon Dioxide 22 (22-30) mmol/L Anion Gap 14.4 (5-15) MEQ/L BUN 13 (7-17) mg/dL Creatinine 0.78 (0.52-1.04) mg/dL Estimated GFR > 60 ML/MIN Glucose 105 (74-106) mg/dL Calcium 8.8 (8.4-10.2) mg/dL Magnesium 1.9 (1.6-2.3) mg/dL Total Bilirubin 0.40 (0.2-1.3) mg/dL AST 26 (14-36) U/L ALT 34 (0-35) U/L Alkaline Phosphatase 68 (38-126) U/L Troponin I (0.000-0.034) ng/mL Serum Total Protein 6.1 L (6.3-8.2) g/dL Albumin 3.6 (3.5-5.0) g/dL Amylase 41 (30-110) U/L Lipase 100 (23-300) U/L Ur Collection Type Urine Color (YELLOW) Urine Appearance (CLEAR) Urine pH (5-6) Ur Specific Lanse (1.005-1.025) Urine Protein (Negative) Urine Ketones (NEGATIVE) Urine Blood (0-5) Francis/ul Urine Nitrite (NEGATIVE) Urine Bilirubin (NEGATIVE) Urine Urobilinogen (0-1) mg/dL Ur Leukocyte Esterase (NEGATIVE) Urine Microscopic RBC (0-2) /HPF Urine Microscopic WBC (0-5) /HPF Ur Epithelial Cells (FEW) /HPF Urine Bacteria (NEGATIVE) /HPF Urine Mucus (NEGATIVE) /HPF Urine Culture Reflexed (NO) Urine Glucose (NEGATIVE) mg/dL Specimen Received 05/26/17 05/26/17 Range/Units 12:35 12:30 WBC (4.0-10.5) K/mm3 RBC (4.1-5.4) M/mm3 Hgb (12.0-16.0) gm/dl Hct (35-47) % MCV (78-100) fl MCH (26-32) pg MCHC (32-36) g/dl RDW (11.5-14.0) % Plt Count (150-450) K/mm3 MPV (6-9.5) fl Gran % (36.0-66.0) % Eos # (Auto) (0-0.5) Absolute Lymphs (auto) (1.0-4.6) Absolute Monos (auto) (0.0-1.3) Lymphocytes % (24.0-44.0) % Monocytes % (0.0-12.0) % Eosinophils % (0.00-5.0) % Basophils % (0.0-0.4) % Absolute Granulocytes (1.4-6.9) Basophils # (0-0.4) PT (9.95-12.35) SECONDS INR (0.8-3.0) APTT (25.3-37.0) SECONDS D-Dimer (215-500) ng/mL Sodium (137-145) mmol/L Potassium (3.5-5.1) mmol/L Chloride (98-107) mmol/L Carbon Dioxide (22-30) mmol/L Anion Gap (5-15) MEQ/L BUN (7-17) mg/dL Creatinine (0.52-1.04) mg/dL Estimated GFR ML/MIN Glucose (74-106) mg/dL Calcium (8.4-10.2) mg/dL Magnesium (1.6-2.3) mg/dL Total Bilirubin (0.2-1.3) mg/dL AST (14-36) U/L ALT (0-35) U/L Alkaline Phosphatase (38-126) U/L Troponin I < 0.012 (0.000-0.034) ng/mL Serum Total Protein (6.3-8.2) g/dL Albumin (3.5-5.0) g/dL Amylase (30-110) U/L Lipase (23-300) U/L Ur Collection Type CLEAN CATCH Urine Color YELLOW (YELLOW) Urine Appearance HAZY (CLEAR) Urine pH 5.0 (5-6) Ur Specific Lanse 1.015 (1.005-1.025) Urine Protein TRACE (Negative) Urine Ketones NEGATIVE (NEGATIVE) Urine Blood NEGATIVE (0-5) Francis/ul Urine Nitrite NEGATIVE (NEGATIVE) Urine Bilirubin NEGATIVE (NEGATIVE) Urine Urobilinogen NORMAL (0-1) mg/dL Ur Leukocyte Esterase TRACE (NEGATIVE) Urine Microscopic RBC 0-2 (0-2) /HPF Urine Microscopic WBC 2-5 (0-5) /HPF Ur Epithelial Cells FEW (FEW) /HPF Urine Bacteria MODERATE (NEGATIVE) /HPF Urine Mucus MODERATE (NEGATIVE) /HPF Urine Culture Reflexed YES (NO) Urine Glucose NEGATIVE (NEGATIVE) mg/dL Specimen Received 05-26-17 1230 - Departure Time of Disposition: 14:19 Departure Disposition: Home Clinical Impression: WEAKNESS, UTI, VOMITING, DIARRHEA, HTN, ARTHRITIS, HX DVT, HX A.FIB Condition: Stable Critical Care Time: No Referrals: ALYCE GONZALEZ [Primary Care Provider] - Instructions: Urinary Tract Infection, Adult (DC), Nausea and Vomiting, Adult, Diarrhea and Traveler's Diarrhea, Adult (DC) Additional Instructions: FOLLOW UP WITH PRIVATE DOCTOR TOMORROW. Prescriptions: Nitrofurantoin Macro 100 mg [Macrobid 100MG Capsule] 100 mg PO BID #20 capsule
[2017-05-26] MEDS ORDERED: Phenergan 25 MG INJ ONE (12:12)
[2017-05-26] MEDS ORDERED: Sodium Chloride 0.9% 1000 ML 1,000 ML ONE (12:13)
[2017-05-26 12:49] LABS: Appearance HAZY (CLEAR); Bilirubin NEGATIVE (NEGATIVE); Blood NEGATIVE Ery/ul (0-5); Glucose NEGATIVE (NEGATIVE); Ketones NEGATIVE (NEGATIVE); Leukocyte Esterase TRACE (NEGATIVE); Nitrite NEGATIVE (NEGATIVE); Protein,Urine Dip TRACE (Negative); Specific Gravity 1.015 (1.005-1.025); Urobilinogen NORMAL mg/dL (0-1)
[2017-05-26 12:53] LABS: BASOPHIL % 0.2 % (0.0-0.4); Basophil (Absolute #) 0.01 (0-0.4); Eosinophil % 1.3 % (0.00-5.0); Eosinophil (Absolute #) 0.08 (0-0.5); Granulocyte Absolute (ANC) 4.56 (1.4-6.9); Hematocrit 41.6 % (35-47); Hemoglobin 14.1 gm/dl (12.0-16.0); Lymphocyte (Absolute #) 1.04 (1.0-4.6); Lymphocytes % 16.4 % (24.0-44.0); Mean Corpuscular Hemoglobin 32.9 pg (26-32); Mean Corpuscular Hgb Concent. 33.9 g/dl (32-36); Mean Platelet Volume 9.9 fl (6-9.5); Monocyte (Absolute #) 0.64 (0.0-1.3); Monocytes % 10.1 % (0.0-12.0); Platelet Count 245 K/mm3 (150-450); Red Blood Count 4.29 M/mm3 (4.1-5.4); Red Cell Distribution Width 13.8 % (11.5-14.0); White Blood Count 6.3 K/mm3 (4.0-10.5)
[2017-05-26 12:59] LABS: INR 3.16 (0.8-3.0)
[2017-05-26 13:00] LABS: D-DIMER QUANTITATION 226.05 ng/mL (215-500)
[2017-05-26 13:01] LABS: PTT 35.5 SECONDS (25.3-37.0)
[2017-05-26 13:03] LABS: ALBUMIN 3.6 g/dL (3.5-5.0); ALKALINE PHOSPHATASE 68 U/L (38-126); AMYLASE 41 U/L (30-110); ANION GAP 14.4 MEQ/L (5-15); BLOOD UREA NITROGEN 13 mg/dL (7-17); CHLORIDE 108 mmol/L (98-107); Calcium 8.8 mg/dL (8.4-10.2); Carbon Dioxide 22 mmol/L (22-30); Creatinine 1 0.78 mg/dL (0.52-1.04); Glucose 105 mg/dL (74-106); LIPASE 100 U/L (23-300); Potassium 3.9 mmol/L (3.5-5.1); SGOT/AST 26 U/L (14-36); SGPT/ALT 34 U/L (0-35); SODIUM 141 mmol/L (137-145); Total Protein 6.1 g/dL (6.3-8.2)
[2017-05-26 13:40] VITALS: BP 118/67; PULSE 84
[2017-05-26 14:01] LABS: Bacteria MODERATE /HPF (NEGATIVE); Epithelial Cells FEW /HPF (FEW); Mucus MODERATE /HPF (NEGATIVE)
[2017-05-26] MEDS ORDERED: ROCEPHIN 1 Gm-D5w 50 ml Bag** 1 G/50 ML IVPB IV STA (14:13)
[2017-05-26] MEDS ORDERED: ROCEPHIN 1 Gm-D5w 50 ml Bag** 1 G/50 ML IVPB IV ONE (14:15)
[2017-05-26 14:19] VITALS: O2SAT 96
--- NOTE | 2017-05-26 22:54 | XRAY ---
Indication: Weakness. Comparison: April 30, 2017. Portable chest demonstrates interval improved right lower lobe infiltrate/atelectasis with minimal residual. Left lung clear. Heart is not enlarged for AP portable technique. No new abnormalities.
== END 2017-05-26 15:02 | disposition home or self-care (01) ==
LOC: ED 11:37
DX: R53.1 Weakness (principal); R11.10 Vomiting, unspecified; R19.7 Diarrhea, unspecified; M19.90 Unspecified osteoarthritis, unspecified site; Z86.718 Personal history of other venous thrombosis and embolism; Z86.79 Personal history of other diseases of the circulatory system
CPT/HCPCS: 36000; 36415; 71045; 80053; 81000; 82150; 83690; 83735; 84484; 85025; 85379; 85610; 85730; 87086; 93005; 96360; 96365; 96374; 99284; J0696; J2550

== ENCOUNTER 2020-06-29 16:35 | Emergency (ER) | payer MEDICARE, OTHER ==
--- NOTE | 2020-06-29 16:43 | ERPHSYRPT ---
- History of Present Illness Time Seen by Provider: 06/29/20 16:43 Source: patient Exam Limitations: no limitations Physician History: This is an 79-year-old white female who has no documented history of diabetes but after COVID-19 infection 3 to 4 months ago, her blood sugars have been intermittently elevated. Her professional application designer had labs drawn today and one of the labs performed at 1026 this morning came back with a blood glucose of 460. She arrives today asymptomatic. Her Accu-Chek on arrival shows a blood glucose of 515. Patient denies of headache, patient denies of chest pain, patient denies shortness of breath, patient denies of abdominal pain. Upon arrival to the emergency department, we made a follow-up appointment for this patient and her primary care physician's office tomorrow morning Timing/Duration: today Associated Symptoms: denies symptoms Allergies/Adverse Reactions: morphine Adverse Reaction (Severe, Verified 06/29/20 16:53) Nausea and Vomiting tramadol Adverse Reaction (Severe, Verified 06/29/20 16:53) Nausea and Vomiting Sulfa (Sulfonamide Antibiotics) Adverse Reaction (Verified 06/29/20 16:53) sick Home Medications: Spironolactone 25 mg [Aldactone 25 MG] 25 mg PO DAILY 05/26/17 [History] Atorvastatin Calcium [Lipitor] 20 mg PO UD 06/29/20 [History] Digoxin 0.125 mg Tablet [Lanoxin 0.125MG TABLET] 0.125 mg PO DAILY 06/29/20 [History] Losartan Potassium 50 mg [Cozaar 50 MG] 50 mg PO DAILY 06/29/20 [History] Metoprolol Succinate [Toprol Xl] 200 mg PO DAILY 06/29/20 [History] Rivaroxaban [Xarelto] 20 mg PO DAILY 06/29/20 [History] Hx Tetanus, Diphtheria Vaccination/Date Given: Yes Hx Influenza Vaccination/Date Given: Yes Hx Pneumococcal Vaccination/Date Given: No Travel Risk - International Travel Have you traveled outside of the country in past 3 weeks: No - Coronavirus Screening Are you exhibiting any of the following symptoms?: No Close contact with a COVID-19 positive Pt in past 14-21 Days: No - Vaccine Status Have you recieved a Covid-19 vaccination: No - Review of Systems Constitutional: No Symptoms Eyes: No Symptoms Ears, Nose, & Throat: No Symptoms Respiratory: No Symptoms Cardiac: No Symptoms Abdominal/Gastrointestinal: No Symptoms Genitourinary Symptoms: No Symptoms Musculoskeletal: No Symptoms Skin: No Symptoms Neurological: No Symptoms Psychological: No Symptoms Endocrine: No Symptoms Hematologic/Lymphatic: No Symptoms Immunological/Allergic: No Symptoms All Other Systems: Reviewed and Negative - Past Medical History Pertinent Past Medical History: Yes Neurological History: No Pertinent History ENT History: No Pertinent History Cardiac History: Arrhythmia (A.FIB), Deep Vein Thrombosis, Hypertension Respiratory History: No Pertinent History Endocrine Medical History: No Pertinent History Musculoskeletal History: Arthritis GI Medical History: No Pertinent History History: No Pertinent History Psycho-Social History: No Pertinent History Female Reproductive Disorders: No Pertinent History - Past Surgical History Past Surgical History: Yes Neuro Surgical History: No Pertinent History Cardiac: No Pertinent History Respiratory: No Pertinent History Gastrointestinal: No Pertinent History Genitourinary: No Pertinent History Musculoskeletal: No Pertinent History Female Surgical History: Hysterectomy Other Surgical History: rt hand - Social History Smoking Status: Never smoker Exposure to second hand smoke: No Drug Use: none Patient Lives Alone: No - Nursing Vital Signs Nursing Vital Signs: Initial Vital Signs Temperature 97.9 F 06/29/20 16:41 Pulse Rate 96 H 06/29/20 16:41 Blood Pressure 159/81 06/29/20 16:41 O2 Sat by Pulse Oximetry 96 06/29/20 16:41 Pain Scale Pain Intensity 0 - Physical Exam General Appearance: no apparent distress, alert, anxiety Eye Exam: PERRL/EOMI, eyes nml inspection Ears, Nose, Throat Exam: normal ENT inspection, moist mucous membranes Neck Exam: normal inspection, non-tender, supple, full range of motion Respiratory Exam: normal breath sounds, lungs clear, airway intact, No chest tenderness, No respiratory distress Cardiovascular Exam: regular rate/rhythm, normal heart sounds, normal peripheral pulses Gastrointestinal/Abdomen Exam: soft, normal bowel sounds, No tenderness Pelvic Exam: not done Rectal Exam: not done Back Exam: normal inspection, normal range of motion, No CVA tenderness, No vertebral tenderness Extremity Exam: normal inspection, normal range of motion, pelvis stable Neurologic Exam: alert, oriented x 3, cooperative, clinical provider trainer II-XII nml as tested, normal mood/affect, nml cerebellar function, nml station & gait, sensation nml Skin Exam: normal color, warm, dry Lymphatic Exam: No adenopathy SpO2 Interpretation: normal O2 Delivery: Room Air Ordered Tests: Active Orders 24 hr Category Date Time Status IV Insertion STAT Care 06/29/20 17:00 Active BMP Stat Lab 06/29/20 17:42 Completed CBC W DIFF Stat Lab 06/29/20 17:42 Completed D-DIMER QUANTITATIVE Stat Lab 06/29/20 17:35 Completed POCT GLUCOSE Stat Lab 06/29/20 16:49 Completed POCT GLUCOSE Stat Lab 06/29/20 17:45 Completed POCT GLUCOSE Stat Lab 06/29/20 18:50 Completed Medication Summary Discontinued Medications Generic Name Dose Route Start Last Admin Trade Name Freq PRN Reason Stop Dose Admin Sodium Chloride 500 mls @ 500 mls/hr 06/29/20 17:00 06/29/20 17:08 Sodium Chloride 0.9% 500 Ml IV 06/29/20 17:59 500 mls/hr .Q1H ONE Administration Sodium Chloride Confirm 06/29/20 17:06 Sodium Chloride 0.9% 500 Ml Administered 06/29/20 17:07 Dose 500 mls @ ud IV .STK-MED ONE Insulin Human Regular 16 unit 06/29/20 17:01 06/29/20 17:08 Humulin R IV 06/29/20 17:02 16 unit STAT ONE Administration Insulin Human Regular Confirm 06/29/20 17:06 Humulin R Administered 06/29/20 17:07 Dose 16 unit .ROUTE .STK-MED ONE Lorazepam 0.5 mg 06/29/20 17:50 06/29/20 17:53 Ativan 2 Mg/1 Ml Vial IV 06/29/20 17:51 0.5 mg STAT ONE Administration Lorazepam Confirm 06/29/20 17:52 Ativan 2 Mg/1 Ml Vial Administered 06/29/20 17:53 Dose 2 mg .ROUTE .STK-MED ONE Lab/Rad Data: Laboratory Result Diagrams 06/29/20 17:42 06/29/20 17:42 Laboratory Results 06/29/20 06/29/20 06/29/20 Range/Units 18:50 17:45 17:45 WBC (4.0-10.5) K/mm3 RBC (4.1-5.4) M/mm3 Hgb (12.0-16.0) gm/dl Hct (35-47) % MCV (78-100) fl MCH (26-32) pg MCHC (32-36) g/dl RDW (11.5-14.0) % Plt Count (150-450) K/mm3 MPV (7.5-11.0) fl Gran % (36.0-66.0) % Eos # (Auto) (0-0.5) Absolute Lymphs (auto) (1.0-4.6) Absolute Monos (auto) (0.0-1.3) Lymphocytes % (24.0-44.0) % Monocytes % (0.0-12.0) % Eosinophils % (0.00-5.0) % Basophils % (0.0-0.4) % Absolute Granulocytes (1.4-6.9) Basophils # (0-0.4) D-Dimer (215-500) ng/mL Sodium (137-145) mmol/L Potassium (3.5-5.1) mmol/L Chloride (98-107) mmol/L Carbon Dioxide (22-30) mmol/L Anion Gap (5-15) MEQ/L BUN (7-17) mg/dL Creatinine (0.52-1.04) mg/dL Estimated GFR ML/MIN Glucose (74-106) mg/dL POC Glucometer 278 H 390 H (50 to 500) mg/dL Hemoglobin A1c 13.44 H (4.5-6.0) % Calcium (8.4-10.2) mg/dL Digoxin (0.8-1.9) ng/mL 06/29/20 06/29/20 06/29/20 Range/Units 17:42 17:42 17:35 WBC 8.6 (4.0-10.5) K/mm3 RBC 3.97 L (4.1-5.4) M/mm3 Hgb 13.3 (12.0-16.0) gm/dl Hct 39.0 (35-47) % MCV 98.2 (78-100) fl MCH 33.5 H (26-32) pg MCHC 34.1 (32-36) g/dl RDW 12.3 (11.5-14.0) % Plt Count 247 (150-450) K/mm3 MPV 10.4 (7.5-11.0) fl Gran % 75.1 H (36.0-66.0) % Eos # (Auto) 0.04 (0-0.5) Absolute Lymphs (auto) 1.66 (1.0-4.6) Absolute Monos (auto) 0.43 (0.0-1.3) Lymphocytes % 19.3 L (24.0-44.0) % Monocytes % 5.0 (0.0-12.0) % Eosinophils % 0.5 (0.00-5.0) % Basophils % 0.1 (0.0-0.4) % Absolute Granulocytes 6.44 (1.4-6.9) Basophils # 0.01 (0-0.4) D-Dimer (215-500) ng/mL Sodium 131 L (137-145) mmol/L Potassium 4.3 (3.5-5.1) mmol/L Chloride 97 L (98-107) mmol/L Carbon Dioxide 24 (22-30) mmol/L Anion Gap 14.2 (5-15) MEQ/L BUN 17 (7-17) mg/dL Creatinine 0.86 (0.52-1.04) mg/dL Estimated GFR > 60.0 ML/MIN Glucose 367 H (74-106) mg/dL POC Glucometer (50 to 500) mg/dL Hemoglobin A1c (4.5-6.0) % Calcium 9.3 (8.4-10.2) mg/dL Digoxin 0.8 (0.8-1.9) ng/mL 06/29/20 06/29/20 Range/Units 17:35 16:49 WBC (4.0-10.5) K/mm3 RBC (4.1-5.4) M/mm3 Hgb (12.0-16.0) gm/dl Hct (35-47) % MCV (78-100) fl MCH (26-32) pg MCHC (32-36) g/dl RDW (11.5-14.0) % Plt Count (150-450) K/mm3 MPV (7.5-11.0) fl Gran % (36.0-66.0) % Eos # (Auto) (0-0.5) Absolute Lymphs (auto) (1.0-4.6) Absolute Monos (auto) (0.0-1.3) Lymphocytes % (24.0-44.0) % Monocytes % (0.0-12.0) % Eosinophils % (0.00-5.0) % Basophils % (0.0-0.4) % Absolute Granulocytes (1.4-6.9) Basophils # (0-0.4) D-Dimer < 215 L (215-500) ng/mL Sodium (137-145) mmol/L Potassium (3.5-5.1) mmol/L Chloride (98-107) mmol/L Carbon Dioxide (22-30) mmol/L Anion Gap (5-15) MEQ/L BUN (7-17) mg/dL Creatinine (0.52-1.04) mg/dL Estimated GFR ML/MIN Glucose (74-106) mg/dL POC Glucometer 515 H* (50 to 500) mg/dL Hemoglobin A1c (4.5-6.0) % Calcium (8.4-10.2) mg/dL Digoxin (0.8-1.9) ng/mL - Progress Progress: improved, re-examined Counseled pt/family regarding: lab results, diagnosis, need for follow-up - Departure Departure Disposition: Home Clinical Impression: Hyperglycemia Condition: Stable Critical Care Time: No Referrals: NIECY [place]AD[place] NP [Primary Care Provider] -
[2020-06-29] MEDS ORDERED: HUMULIN R ONE (17:06)
[2020-06-29] MEDS ORDERED: Sodium Chloride 0.9% 500 ML 500 ML IV ONE (17:06)
[2020-06-29] MEDS: HUMULIN R IV ONE (17:08)
[2020-06-29] MEDS: Sodium Chloride 0.9% 500 ML 500 ML IV ONE (17:08)
[2020-06-29 17:45] LABS: Absolute Neutrophil Ct (ANC) 6.44 (1.4-6.9); BASOPHIL % 0.1 % (0.0-0.4); Basophil (Absolute #) 0.01 (0-0.4); Eosinophil % 0.5 % (0.00-5.0); Eosinophil (Absolute #) 0.04 (0-0.5); Hemoglobin 13.3 gm/dl (12.0-16.0); Lymphocyte (Absolute #) 1.66 (1.0-4.6); Lymphocytes % 19.3 % (24.0-44.0); Mean Cell Volume 98.2 fl (78-100); Mean Corpuscular Hemoglobin 33.5 pg (26-32); Mean Corpuscular Hgb Concent. 34.1 g/dl (32-36); Mean Platelet Volume 10.4 fl (7.5-11.0); Monocyte (Absolute #) 0.43 (0.0-1.3); Neutrophil % 75.1 % (36.0-66.0); Platelet Count 247 K/mm3 (150-450); Red Blood Count 3.97 M/mm3 (4.1-5.4); Red Cell Distribution Width 12.3 % (11.5-14.0); White Blood Count 8.6 K/mm3 (4.0-10.5)
[2020-06-29] MEDS ORDERED: Ativan 2 MG/1 ML VIAL ONE (17:52)
[2020-06-29] MEDS: Ativan 2 MG/1 ML VIAL IV ONE (17:53)
[2020-06-29 17:58] LABS: ANION GAP 14.2 MEQ/L (5-15); BLOOD UREA NITROGEN 17 mg/dL (7-17); CHLORIDE 97 mmol/L (98-107); Calcium 9.3 mg/dL (8.4-10.2); Carbon Dioxide 24 mmol/L (22-30); Creatinine 1 0.86 mg/dL (0.52-1.04); EST GLOMERULAR FILTRATION RATE > 60.0 ML/MIN; Glucose 367 mg/dL (74-106); Potassium 4.3 mmol/L (3.5-5.1); SODIUM 131 mmol/L (137-145)
[2020-06-29 18:01] VITALS: O2SAT 95
[2020-06-29 18:57] VITALS: BP 143/75; PULSE 72
== END 2020-06-29 19:05 | disposition home or self-care (01) ==
LOC: ED 16:35
DX: E11.65 Type 2 diabetes mellitus with hyperglycemia (principal); Z79.899 Other long term (current) drug therapy; Z86.79 Personal history of other diseases of the circulatory system; Z86.718 Personal history of other venous thrombosis and embolism; I10 Essential (primary) hypertension
CPT/HCPCS: 36000; 36415; 80048; 80162; 82947; 83036; 83735; 85025; 85379; 96360; 96374; 96375; 99284; J1815; J2060

== ENCOUNTER 2020-06-30 19:52 | Emergency (ER) | payer MEDICARE, OTHER ==
[2020-06-30 21:21] LABS: Absolute Neutrophil Ct (ANC) 5.04 (1.4-6.9); BASOPHIL % 0.3 % (0.0-0.4); Basophil (Absolute #) 0.02 (0-0.4); Eosinophil % 1.1 % (0.00-5.0); Eosinophil (Absolute #) 0.07 (0-0.5); Hematocrit 38.9 % (35-47); Hemoglobin 13.3 gm/dl (12.0-16.0); Lymphocyte (Absolute #) 0.65 (1.0-4.6); Lymphocytes % 10.5 % (24.0-44.0); Mean Cell Volume 98.2 fl (78-100); Mean Corpuscular Hemoglobin 33.6 pg (26-32); Mean Corpuscular Hgb Concent. 34.2 g/dl (32-36); Mean Platelet Volume 10.1 fl (7.5-11.0); Monocyte (Absolute #) 0.44 (0.0-1.3); Monocytes % 7.1 % (0.0-12.0); Platelet Count 195 K/mm3 (150-450); Red Blood Count 3.96 M/mm3 (4.1-5.4); Red Cell Distribution Width 12.5 % (11.5-14.0); White Blood Count 6.2 K/mm3 (4.0-10.5)
[2020-06-30 21:37] LABS: ALBUMIN 3.7 g/dL (3.5-5.0); ALKALINE PHOSPHATASE 66 U/L (38-126); ANION GAP 12.4 MEQ/L (5-15); BLOOD UREA NITROGEN 15 mg/dL (7-17); CHLORIDE 97 mmol/L (98-107); Carbon Dioxide 24 mmol/L (22-30); Creatinine 1 0.83 mg/dL (0.52-1.04); EST GLOMERULAR FILTRATION RATE > 60.0 ML/MIN; Glucose 336 mg/dL (74-106); MAGNESIUM 1.9 mg/dL (1.6-2.3); Potassium 4.5 mmol/L (3.5-5.1); SGOT/AST 37 U/L (14-36); SGPT/ALT 45 U/L (0-35); SODIUM 128 mmol/L (137-145)
[2020-06-30 21:45] LABS: Appearance CLEAR (CLEAR); Bilirubin NEGATIVE (NEGATIVE); Blood NEGATIVE Ery/ul (0-5); Glucose >=500 mg/dL (NEGATIVE); Ketones SMALL (NEGATIVE); Leukocyte Esterase NEGATIVE (NEGATIVE); Mucus SLIGHT /HPF (NEGATIVE); Nitrite NEGATIVE (NEGATIVE); Protein,Urine Dip NEGATIVE (Negative); Specific Gravity 1.027 (1.005-1.025); Urobilinogen NEGATIVE mg/dL (0-1); WBC 0-2 /HPF (0-5)
[2020-06-30] MEDS ORDERED: Sodium Chloride 0.9% 1000 ML 1,000 ML ONE (21:48)
[2020-06-30] MEDS: Sodium Chloride 0.9% 1000 ML 1,000 ML IV STA (21:51)
[2020-06-30 21:58] LABS: INFLUENZA A NEGATIVE (NEGATIVE); INFLUENZA B NEGATIVE (NEGATIVE)
[2020-06-30 23:32] VITALS: BP 122/59; PULSE 95; O2SAT 97
--- NOTE | 2020-06-30 23:43 | ERPHSYRPT ---
- History of Present Illness Time Seen by Provider: 06/30/20 20:00 Source: patient Exam Limitations: no limitations Patient Subjective Stated Complaint: pt's daughter states that she was here yesterday for increased blood sugar and followed up with lu bowen in the office this morning. states they started metformin 500mg at 1230 today but was unable to start januvia d/t cost. states blood sugar this evening was 388 at home. daughter was also concerned because pt had temp at home of 100.1 after 1st moderna covid vaccine yesterday. daughter was concerned about dehydration. Triage Nursing Assessment: pt alert and oreinted, answers questions approp. pt ambulatory with steady gait noted. respirations nonlabored. skin warm and dry. Physician History: Patient is a 79-year-old female presents to our emergency department for evaluation of hyperglycemia and low-grade fever at home. Patient was in our ED yesterday for hyperglycemia. Patient was discharged. Patient followed up with Lu Bowen this morning. Patient was evaluated and started on Metformin. Per daughter patient was advised to start Januvia however due to the cost of Januvia was not an option at this time. Daughter reports that patient had a blood sugar of 388 today at home. Temperature was 100.1. Patient had her first Materna vaccination yesterday. No obvious complications. Daughter feels that patient may be dehydrated. No nausea no vomiting no diarrhea. No rash. No chest pain. No change in sensorium. No obvious nidus of infection. Patient denies any symptoms at this time. Patient and daughter voiced no other complaints at this time. Timing/Duration: yesterday Severity: moderate Modifying Factors: Improves With: nothing Associated Symptoms: denies symptoms Allergies/Adverse Reactions: morphine Adverse Reaction (Severe, Verified 06/30/20 20:22) Nausea and Vomiting tramadol Adverse Reaction (Severe, Verified 06/30/20 20:22) Nausea and Vomiting Sulfa (Sulfonamide Antibiotics) Adverse Reaction (Verified 06/30/20 20:22) sick Home Medications: Spironolactone 25 mg [Aldactone 25 MG] 25 mg PO DAILY 05/26/17 [History] Atorvastatin Calcium [Lipitor] 20 mg PO UD 06/29/20 [History] Digoxin 0.125 mg Tablet [Lanoxin 0.125MG TABLET] 0.125 mg PO DAILY 0 5/04/21 [History] Losartan Potassium 50 mg [Cozaar 50 MG] 50 mg PO DAILY 06/29/20 [History] Metoprolol Succinate [Toprol Xl] 200 mg PO DAILY 06/29/20 [History] Rivaroxaban [Xarelto] 20 mg PO DAILY 06/29/20 [History] Metformin HCl 500 mg [Glucophage 500 MG] 500 mg PO BIDWM 06/30/20 [Histo ry] Hx Tetanus, Diphtheria Vaccination/Date Given: Yes Hx Influenza Vaccination/Date Given: Yes Hx Pneumococcal Vaccination/Date Given: Yes Immunizations Up to Date: Yes Travel Risk - International Travel Have you traveled outside of the country in past 3 weeks: No - Coronavirus Screening Are you exhibiting any of the following symptoms?: No Close contact with a COVID-19 positive Pt in past 14-21 Days: No - Vaccine Status Have you recieved a Covid-19 vaccination: Yes Distance Learning Technician: Moderna - Vaccination Dates Date of 2cond Vaccination (if applicable): na - Review of Systems Constitutional: No Symptoms, Fever, No Chills, No Weakness Eyes: No Symptoms Ears, Nose, & Throat: No Symptoms Respiratory: No Cough, No Dyspnea Cardiac: No Chest Pain, No Edema, No Syncope Abdominal/Gastrointestinal: No Abdominal Pain, No Nausea, No Vomiting, No Diarrhea Genitourinary Symptoms: No Dysuria Musculoskeletal: No Arthralgias, No Back Pain, No Neck Pain Skin: No No Symptoms, No Rash Neurological: No Dizziness, No Focal Weakness, No Sensory Changes Psychological: No Symptoms Endocrine: No Symptoms All Other Systems: Reviewed and Negative - Past Medical History Pertinent Past Medical History: Yes Neurological History: No Pertinent History ENT History: No Pertinent History Cardiac History: Arrhythmia, Deep Vein Thrombosis, Hypertension Respiratory History: No Pertinent History Endocrine Medical History: Diabetes Type II Musculoskeletal History: Arthritis GI Medical History: No Pertinent History History: No Pertinent History Psycho-Social History: No Pertinent History Female Reproductive Disorders: No Pertinent History - Past Surgical History Past Surgical History: Yes Neuro Surgical History: No Pertinent History Cardiac: No Pertinent History Respiratory: No Pertinent History Gastrointestinal: No Pertinent History Genitourinary: No Pertinent History Musculoskeletal: No Pertinent History Female Surgical History: Hysterectomy Other Surgical History: rt hand - Social History Smoking Status: Never smoker Exposure to second hand smoke: No Drug Use: none Patient Lives Alone: No - Nursing Vital Signs Nursing Vital Signs: Initial Vital Signs Temperature 99.2 F 06/30/20 20:00 Pulse Rate 104 H 06/30/20 20:00 Respiratory Rate 20 06/30/20 20:00 Blood Pressure 149/92 06/30/20 20:00 O2 Sat by Pulse Oximetry 96 06/30/20 20:00 Pain Scale Pain Intensity 0 - Physical Exam General Appearance: no apparent distress, alert Eye Exam: PERRL/EOMI, eyes nml inspection Ears, Nose, Throat Exam: normal ENT inspection, TMs normal, pharynx normal, moist mucous membranes, other (Mildly dry oral mucous membranes.) Neck Exam: normal inspection, non-tender, supple, full range of motion Respiratory Exam: normal breath sounds, lungs clear, No respiratory distress, No diminished breath sounds, No accessory muscle use, No prolonged expirations Cardiovascular Exam: normal heart sounds, normal peripheral pulses, other (Mild tachycardia at 127.) Gastrointestinal/Abdomen Exam: soft, normal bowel sounds, No tenderness, No mass Back Exam: normal inspection, normal range of motion, No CVA tenderness, No vertebral tenderness Extremity Exam: normal inspection, normal range of motion, pelvis stable Neurologic Exam: alert, oriented x 3, cooperative, normal mood/affect, nml cerebellar function, sensation nml, No motor deficits Skin Exam: normal color, warm, dry, No rash Lymphatic Exam: No adenopathy SpO2 Interpretation: normal SpO2: 97 O2 Delivery: Room Air - Course Nursing assessment & vital signs reviewed: Yes Ordered Tests: Active Orders 24 hr Category Date Time Status BLOOD CULTURE Stat Lab 06/30/20 21:20 Received CBC W DIFF Stat Lab 06/30/20 21:20 Completed CMP Stat Lab 06/30/20 21:20 Completed INFLUENZA A+B DEEPA Stat Lab 06/30/20 21:35 Completed Lactic Acid Urgent Lab 06/30/20 21:07 Completed MAGNESIUM Stat Lab 06/30/20 21:20 Completed POCT GLUCOSE Stat Lab 06/30/20 20:27 Completed POCT GLUCOSE Stat Lab 06/30/20 23:12 Completed TROPONIN Q3H Lab 06/30/20 21:20 Completed UA W/RFX UR CULTURE Stat Lab 06/30/20 21:10 Completed Medication Summary Discontinued Medications Generic Name Dose Route Start Last Admin Trade Name Freq PRN Reason Stop Dose Admin Sodium Chloride 1,000 mls @ 999 mls/hr 06/30/20 21:43 06/30/20 23:33 Sodium Chloride 0.9% 1000 Ml IV 06/30/20 22:43 Infused .Q1H1M STA Infusion Sodium Chloride Confirm 06/30/20 21:48 Sodium Chloride 0.9% 1000 Ml Administered 06/30/20 21:49 Dose 1,000 mls @ ud .ROUTE .STK-MED ONE Lab/Rad Data: Laboratory Result Diagrams 06/30/20 21:20 06/30/20 21:20 Laboratory Results 06/30/20 06/30/20 06/30/20 Range/Units 23:12 21:35 21:20 WBC (4.0-10.5) K/mm3 RBC (4.1-5.4) M/mm3 Hgb (12.0-16.0) gm/dl Hct (35-47) % MCV (78-100) fl MCH (26-32) pg MCHC (32-36) g/dl RDW (11.5-14.0) % Plt Count (150-450) K/mm3 MPV (7.5-11.0) fl Gran % (36.0-66.0) % Eos # (Auto) (0-0.5) Absolute Lymphs (auto) (1.0-4.6) Absolute Monos (auto) (0.0-1.3) Lymphocytes % (24.0-44.0) % Monocytes % (0.0-12.0) % Eosinophils % (0.00-5.0) % Basophils % (0.0-0.4) % Absolute Granulocytes (1.4-6.9) Basophils # (0-0.4) Sodium (137-145) mmol/L Potassium (3.5-5.1) mmol/L Chloride (98-107) mmol/L Carbon Dioxide (22-30) mmol/L Anion Gap (5-15) MEQ/L BUN (7-17) mg/dL Creatinine (0.52-1.04) mg/dL Estimated GFR ML/MIN Glucose (74-106) mg/dL POC Glucometer 290 H (74 to 106) mg/dL Lactic Acid (0.4-2.0) Calcium (8.4-10.2) mg/dL Magnesium (1.6-2.3) mg/dL Total Bilirubin (0.2-1.3) mg/dL AST (14-36) U/L ALT (0-35) U/L Alkaline Phosphatase (38-126) U/L Troponin I < 0.012 (0.000-0.034) ng/mL Serum Total Protein (6.3-8.2) g/dL Albumin (3.5-5.0) g/dL Urine Color (YELLOW) Urine Appearance (CLEAR) Urine pH (5-6) Ur Specific [place] (1.005-1.025) Urine Protein (Negative) Urine Ketones (NEGATIVE) Urine Blood (0-5) Francis/ul Urine Nitrite (NEGATIVE) Urine Bilirubin (NEGATIVE) Urine Urobilinogen (0-1) mg/dL Ur Leukocyte Esterase (NEGATIVE) Urine WBC (Auto) (0-5) /HPF Urine RBC (Auto) (0-2) /HPF U Epithel Cells (Auto) (FEW) /HPF Urine Bacteria (Auto) (NEGATIVE) /HPF Urine Mucus (Auto) (NEGATIVE) /HPF Urine Culture Reflexed (NO) Urine Glucose (NEGATIVE) mg/dL Influenza Type A Ag NEGATIVE (NEGATIVE) Influenza Type B Ag NEGATIVE (NEGATIVE) 06/30/20 06/30/20 06/30/20 Range/Units 21:20 21:20 21:10 WBC 6.2 (4.0-10.5) K/mm3 RBC 3.96 L (4.1-5.4) M/mm3 Hgb 13.3 (12.0-16.0) gm/dl Hct 38.9 (35-47) % MCV 98.2 (78-100) fl MCH 33.6 H (26-32) pg MCHC 34.2 (32-36) g/dl RDW 12.5 (11.5-14.0) % Plt Count 195 (150-450) K/mm3 MPV 10.1 (7.5-11.0) fl Gran % 81.0 H (36.0-66.0) % Eos # (Auto) 0.07 (0-0.5) Absolute Lymphs (auto) 0.65 L (1.0-4.6) Absolute Monos (auto) 0.44 (0.0-1.3) Lymphocytes % 10.5 L (24.0-44.0) % Monocytes % 7.1 (0.0-12.0) % Eosinophils % 1.1 (0.00-5.0) % Basophils % 0.3 (0.0-0.4) % Absolute Granulocytes 5.04 (1.4-6.9) Basophils # 0.02 (0-0.4) Sodium 128 L (137-145) mmol/L Potassium 4.5 (3.5-5.1) mmol/L Chloride 97 L (98-107) mmol/L Carbon Dioxide 24 (22-30) mmol/L Anion Gap 12.4 (5-15) MEQ/L BUN 15 (7-17) mg/dL Creatinine 0.83 (0.52-1.04) mg/dL Estimated GFR > 60.0 ML/MIN Glucose 336 H (74-106) mg/dL POC Glucometer (74 to 106) mg/dL Lactic Acid (0.4-2.0) Calcium 9.0 (8.4-10.2) mg/dL Magnesium 1.9 (1.6-2.3) mg/dL Total Bilirubin 0.70 (0.2-1.3) mg/dL AST 37 H (14-36) U/L ALT 45 H (0-35) U/L Alkaline Phosphatase 66 (38-126) U/L Troponin I (0.000-0.034) ng/mL Serum Total Protein 6.0 L (6.3-8.2) g/dL Albumin 3.7 (3.5-5.0) g/dL Urine Color YELLOW (YELLOW) Urine Appearance CLEAR (CLEAR) Urine pH 6.0 (5-6) Ur Specific [place] 1.027 (1.005-1.025) Urine Protein NEGATIVE (Negative) Urine Ketones SMALL (NEGATIVE) Urine Blood NEGATIVE (0-5) Francis/ul Urine Nitrite NEGATIVE (NEGATIVE) Urine Bilirubin NEGATIVE (NEGATIVE) Urine Urobilinogen NEGATIVE (0-1) mg/dL Ur Leukocyte Esterase NEGATIVE (NEGATIVE) Urine WBC (Auto) 0-2 (0-5) /HPF Urine RBC (Auto) NONE (0-2) /HPF U Epithel Cells (Auto) NONE (FEW) /HPF Urine Bacteria (Auto) NONE (NEGATIVE) /HPF Urine Mucus (Auto) SLIGHT (NEGATIVE) /HPF Urine Culture Reflexed NO (NO) Urine Glucose >=500 (NEGATIVE) mg/dL Influenza Type A Ag (NEGATIVE) Influenza Type B Ag (NEGATIVE) 06/30/20 06/30/20 Range/Units 21:07 20:27 WBC (4.0-10.5) K/mm3 RBC (4.1-5.4) M/mm3 Hgb (12.0-16.0) gm/dl Hct (35-47) % MCV (78-100) fl MCH (26-32) pg MCHC (32-36) g/dl RDW (11.5-14.0) % Plt Count (150-450) K/mm3 MPV (7.5-11.0) fl Gran % (36.0-66.0) % Eos # (Auto) (0-0.5) Absolute Lymphs (auto) (1.0-4.6) Absolute Monos (auto) (0.0-1.3) Lymphocytes % (24.0-44.0) % Monocytes % (0.0-12.0) % Eosinophils % (0.00-5.0) % Basophils % (0.0-0.4) % Absolute Granulocytes (1.4-6.9) Basophils # (0-0.4) Sodium (137-145) mmol/L Potassium (3.5-5.1) mmol/L Chloride (98-107) mmol/L Carbon Dioxide (22-30) mmol/L Anion Gap (5-15) MEQ/L BUN (7-17) mg/dL Creatinine (0.52-1.04) mg/dL Estimated GFR ML/MIN Glucose (74-106) mg/dL POC Glucometer 353 H (74 to 106) mg/dL Lactic Acid 1.4 (0.4-2.0) Calcium (8.4-10.2) mg/dL Magnesium (1.6-2.3) mg/dL Total Bilirubin (0.2-1.3) mg/dL AST (14-36) U/L ALT (0-35) U/L Alkaline Phosphatase (38-126) U/L Troponin I (0.000-0.034) ng/mL Serum Total Protein (6.3-8.2) g/dL Albumin (3.5-5.0) g/dL Urine Color (YELLOW) Urine Appearance (CLEAR) Urine pH (5-6) Ur Specific [place] (1.005-1.025) Urine Protein (Negative) Urine Ketones (NEGATIVE) Urine Blood (0-5) Francis/ul Urine Nitrite (NEGATIVE) Urine Bilirubin (NEGATIVE) Urine Urobilinogen (0-1) mg/dL Ur Leukocyte Esterase (NEGATIVE) Urine WBC (Auto) (0-5) /HPF Urine RBC (Auto) (0-2) /HPF U Epithel Cells (Auto) (FEW) /HPF Urine Bacteria (Auto) (NEGATIVE) /HPF Urine Mucus (Auto) (NEGATIVE) /HPF Urine Culture Reflexed (NO) Urine Glucose (NEGATIVE) mg/dL Influenza Type A Ag (NEGATIVE) Influenza Type B Ag (NEGATIVE) - Progress Progress: improved Progress Note: Patient reassessed. She continues to feel well. Work-up reveals a mild hyponatremia with a hyperglycemia. No anion gap acidosis. Patient was hydrated. Sugar decreased from 353-336-290. Patient has her Metformin. Daughter reported patient had a low-grade fever of 100.1 at home. Patient was afebrile at our ED. temperature at discharge was 98.7. Influenza a and B were negative. Urinalysis was negative as well. No indication for chest x-ray. It is likely that patient's slightly elevated temperature at home was due to her recent vaccination. Patient received a liter of IV fluids. Tachycardia resolved. Heart rate decreased from 127-95. Daughter at bedside was very eager to leave. She stated she had to be at work at 5 AM. Daughter requested admission however in light of the significant improvement with IV hydration admission was not necessary. I discussed the case with Dr. Gomez who stated he would follow-up with patient tomorrow in his office at 1:15 PM. Patient to continue taking Metformin as prescribed. We intended to wait for a second troponin but daughter did not want to wait. So patient was discharged earlier than intended. They agree to follow-up with Dr. Gomez tomorrow at 1:15 PM as planned. Patient/daughter voiced no other concerns or complaints at discharge. 07/01/20 00:12 Discussed with DrMadie: Jossue (Case discussed with Dr. Gomez covering Dr. Castellano.) Will see patient in: office (Dr. Gomez will see patient in his office tomorrow 1:15 PM.) Counseled pt/family regarding: lab results, diagnosis, need for follow-up - Departure Departure Disposition: Home Clinical Impression: Hyperglycemia, Hyponatremia, Glucosuria, Diabetes Condition: Stable Critical Care Time: No Referrals: NIECY BOWEN, [employer] TECHNICIAN [Primary Care Provider] - DAVID GOMEZ [ACTIVE STAFF] - Instructions: Dehydration, Adult (DC), Hyperglycemia, Adult (DC), The ABCs of Diabetes Additional Instructions: Dr. Gomez will see you in his office tomorrow afternoon at 1:15 PM. Discharge/Care Plan LUCILA CANDELARIO was seen on 06/30/20 in the Emergency Room. The patient was counseled regarding Diagnosis,Lab results, Imaging studies, need for follow up and when to return to the Emergency Room. Prescriptions given: Discharge Note I have spoken with the patient and/or caregivers. I have explained the patient's condition, diagnosis and treatment plan based on the information available to me at this time. I have answered the patient's and/or caregiver's questions and addressed any concerns. The patient and/or caregivers have as good understanding of the patient's diagnosis, condition and treatment plan as can be expected at this point. The vital signs have been stable. The patient's condition is stable and appropriate for discharge from the emergency department. The patient will pursue further outpatient evaluation with the primary care physician or other designated or consulting physician as outlined in the discharge instructions. The patient and/or caregivers are agreeable to this plan of care and follow-up instructions have been explained in detail. The patient and/or caregivers have received these instruction. The patient/and or caregivers are aware that any significant change in condition or worsening of symptoms should prompt an immediate return to this or the closest emergency department or call 911.
== END 2020-06-30 23:58 | disposition home or self-care (01) ==
LOC: ED 19:52
DX: E11.65 Type 2 diabetes mellitus with hyperglycemia (principal)
CPT/HCPCS: 36415; 80053; 81001; 82947; 83605; 83735; 84484; 85025; 87040; 87400; 96360; 99284

== ENCOUNTER 2023-03-13 06:32 | Day surgery (SDC) | payer MEDICARE ==
[~2023-03-13 06:32] MED LIST changes: +Ak-Dilate OPHTHALMIC*** 1.065 ML, Cyclogyl 1% OPHTH SOL 1.065 ML, GATIFLOXACIN 0.5% OPH... OP ONE; +BETADINE 5% OPHTHALMIC 30 ML OP ONE; -Lactated Ringers 1,000 ML IV ONE; +NON-FORMULARY ITEM OP ONE; +TETRACAINE 0.5% STERI-UNIT SOL OP ONE; +cefUROXime sodium 0.005 GM in Sodium Chloride Flush 30 ML*** 0.5 ML IJ ONE
[2023-03-13] MEDS ORDERED: Lactated Ringers 1,000 ML IV ONE (06:49)
[2023-03-13 07:33] VITALS: RESP 16
[2023-03-13] MEDS ORDERED: ACETAZOLAMIDE 250 MG TABLET PO ONE (08:30)
[2023-03-13] MEDS ORDERED: Zofran 4 MG/2 ML VIAL IV PRN (08:30)
[2023-03-13] MEDS ORDERED: Epinephrine Preservative Free 1 MG/ML IJ ONE (08:30)
[2023-03-13] MEDS ORDERED: DIPRIVAN 200 MG/20 ML IV ONE (09:46)
[2023-03-13 10:18] VITALS: TEMP 97.1
[2023-03-13 10:32] VITALS: BP 124/59; PULSE 76; O2SAT 97
== END 2023-03-13 10:39 | disposition home or self-care (01) ==
LOC: SDC 06:32
PROVIDERS: ATTEND Ophthalmology
DX: H25.811 Combined forms of age-related cataract, right eye (principal); E11.9 Type 2 diabetes mellitus without complications
CPT/HCPCS: 82947; C1780; J0171; J2704; A9270-GY

== ENCOUNTER 2023-04-06 06:01 | Day surgery (SDC) | payer MEDICARE ==
[~2023-04-06 06:01] MED LIST changes: -Ak-Dilate OPHTHALMIC*** 1.065 ML, Cyclogyl 1% OPHTH SOL 1.065 ML, GATIFLOXACIN 0.5% OPH... OP ONE; -Lactated Ringers 1,000 ML IV SCH; -TETRACAINE 0.5% STERI-UNIT SOL OP ONE
[2023-04-06] MEDS ORDERED: Lactated Ringers 1,000 ML IV ONE (06:07)
[2023-04-06] MEDS: Lactated Ringers 1,000 ML IV SCH ×2 (06:50→08:36)
[2023-04-06] MEDS: TETRACAINE 0.5% STERI-UNIT SOL OP ONE ×2 (07:13→07:46)
[2023-04-06] MEDS: Ak-Dilate OPHTHALMIC*** 1.065 ML, Cyclogyl 1% OPHTH SOL 1.065 ML, GATIFLOXACIN 0.5% OPH... OP ONE (07:17)
[2023-04-06] MEDS ORDERED: Versed 2 MG/2 ML Injection ONE (08:06)
[2023-04-06] MEDS ORDERED: DIPRIVAN 200 MG/20 ML IV ONE (08:06)
[2023-04-06] MEDS ORDERED: SUBLIMAZE 100 MCG/2 ML ONE (08:06)
[2023-04-06] MEDS ORDERED: Zofran 4 MG/2 ML VIAL IV PRN (08:30)
[2023-04-06 08:50] VITALS: RESP 16
[2023-04-06] MEDS: ACETAZOLAMIDE 250 MG TABLET PO ONE (08:53)
[2023-04-06 09:07] VITALS: BP 129/78; PULSE 78; TEMP 97.1; O2SAT 97
[2023-04-06] MEDS ORDERED: LIDOCAINE HCL 1% 50 MG/5 ML VL PF IJ ONE (13:20)
[2023-04-06] MEDS ORDERED: Epinephrine Preservative Free 1 MG/ML IJ ONE (13:20)
== END 2023-04-06 09:35 | disposition home or self-care (01) ==
LOC: SDC 06:01
PROVIDERS: ATTEND Ophthalmology
DX: H25.812 Combined forms of age-related cataract, left eye (principal); E11.9 Type 2 diabetes mellitus without complications
CPT/HCPCS: 82947; 93005; C1780; J0171; J2001; J2250; J2704; J3010; A9270-GY